=== PATIENT | female | born 1945 | race American Indian/Alaskan Native ===

== ENCOUNTER 2018-09-03 15:00 | Inpatient (IN) | payer MEDICARE, BC ==
[2018-09-03 20:55] VITALS: BMI 18.2
--- NOTE | 2018-09-03 22:55 | CP.PCM.HP ---
History of Present Illness - History of Present Illness History of Present Illness: PMD: Not on service Chief Complaint: Right side weakness The patient was seen and examined in the Rehab Unit HPI: The hx was obtained from the patient and after review of the radiological and medical records. This is a 73 years old female with hx of ESRD on HD T ; HTN, CAD and Gout. [facility] and rehabilitation. She was admitted to the [facility] on 08/26/18 with confusion and right side weakness and diagnosed with Cerebral Hemorrhage. At present she refers no headache, dizziness, nausea, vomits, SOB nor chest pain. Still with dome coordination abnormalities of the left upper extremity. PMH: Gout; DJD; Hypothyroidism; CAD;ESRD on HD ; HTN; Cataract PSHJ: Right knee replacement; Cataract extraction; Coronary stent placement; SH: Never Smoked; No Alcohol use; No illegal drug use; FH: States: No known Family Hx Allergies: NKDA Medication: Reviewed Present on Admission - Present on Admission Any Indicators Present on Admission: No History of DVT/PE: No History of Uncontrolled Diabetes: No Urinary Catheter: No Decubitus Ulcer Present: No Review of Systems - Constitutional Constitutional: absent: Anorexia, Chills, Fever, Headache - EENT Eyes: Requires Corrective Lenses. absent: Blurred Vision, Diplopia Ears: absent: Decreased Hearing, Ear Discharge, Tinnitus Nose/Mouth/Throat: absent: Epistaxis, Nasal Congestion, Nasal Discharge, Sinus Pain, Sinus Pressure - Cardiovascular Cardiovascular: absent: Chest Pain, Dyspnea, Edema - Respiratory Respiratory: absent: Cough, Dyspnea, Wheezing - Gastrointestinal Gastrointestinal: absent: Abdominal Pain, Constipation, Diarrhea, Nausea, Vomiting - Genitourinary Genitourinary: absent: Dysuria, Flank Pain - Musculoskeletal Musculoskeletal: Arthralgias. absent: Muscle Weakness - Integumentary Integumentary: absent: Pruritus, Rash, Skin Ulcer, Sores, Striae, Swelling - Neurological Neurological: absent: Confusion, Focal Weakness, Weakness - Psychiatric Psychiatric: absent: Anxiety, Depression, Panic Attacks - Endocrine Endocrine: absent: Palpitations, Polydipsia, Polyphagia, Polyuria - Hematologic/Lymphatic Hematologic: absent: Easy Bleeding, Easy Bruising Past Patient History - Past Medical History & Family History Past Medical History?: Yes - Past Social History Smoking Status: Never Smoked Chewing Tobacco Use: No Cigar Use: No Alcohol: None Drugs: Denies - CARDIAC Hx Cardiac Disorders: Yes Hx Heart Attack: Yes (2017-CARDIAC STENT PLACED X1) Hx Hypertension: Yes - PULMONARY Hx Respiratory Disorders: No - NEUROLOGICAL Hx Neurological Disorder: No - HEENT Hx HEENT Problems: Yes Hx Cataracts: Yes - RENAL Hx Chronic Kidney Disease: Yes Date of Last Dialysis Treatment: 07/12/18 Hx Renal Failure: Yes - ENDOCRINE/METABOLIC Hx Endocrine Disorders: Yes Hx Hypothyroidism: Yes - HEMATOLOGICAL/ONCOLOGICAL Hx Blood Disorders: No - INTEGUMENTARY Hx Dermatological Problems: No - MUSCULOSKELETAL/RHEUMATOLOGICAL Hx Musculoskeletal Disorders: Yes Hx Degenerative Joint Disease: Yes Hx Gout: Yes Other/Comment: HX: RIGHT KNEE REPLACEMENT - GASTROINTESTINAL Hx Gastrointestinal Disorders: No - GENITOURINARY/GYNECOLOGICAL Hx Genitourinary Disorders: No - PSYCHIATRIC Hx Psychophysiologic Disorder: No - SURGICAL HISTORY Hx Surgeries: Yes Hx Arteriovenous Shunt: Yes (LEFT ARM) Hx Cataract Extraction: Yes Hx Coronary Stent: Yes (X1(2017)) Hx Orthopedic Surgery: Yes (RIGHT KNEE REPLACEMENT) - ANESTHESIA Hx Anesthesia: Yes Hx Anesthesia Reactions: No Hx Malignant Hyperthermia: No Meds Allergies/Adverse Reactions: Allergies Allergy/AdvReac Type Severity Reaction Status Date / Time No Known Allergies Allergy Verified 09/03/18 21:45 Physical Exam - Constitutional Appears: No Acute Distress - Head Exam Head Exam: ATRAUMATIC, NORMAL INSPECTION, NORMOCEPHALIC - Eye Exam Eye Exam: EOMI Pupil Exam: NORMAL ACCOMODATION, PERRL - ENT Exam ENT Exam: Mucous Membranes Moist, Normal Exam, Normal External Ear Exam - Neck Exam Neck exam: Positive for: Full Rom, Normal Inspection. Negative for: Lymphadenopathy, Tenderness - Respiratory Exam Respiratory Exam: Clear to Auscultation Bilateral. absent: Rales, Rhonchi, Wheezes - Cardiovascular Exam Cardiovascular Exam: REGULAR RHYTHM, RRR, +S1, +S2 - GI/Abdominal Exam GI & Abdominal Exam: Normal Bowel Sounds, Soft. absent: Mass, Organomegaly, Tenderness - Rectal Exam Rectal Exam: Deferred - Extremities Exam Extremities exam: Positive for: normal inspection. Negative for: calf tenderness, pedal edema - Back Exam Back exam: NORMAL INSPECTION. absent: CVA tenderness (L), CVA tenderness (R) - Neurological Exam Neurological exam: Alert, CN II-XII Intact, Oriented x3, Reflexes Normal - Psychiatric Exam Psychiatric exam: Normal Affect, Normal Mood - Skin Skin Exam: Dry, Normal Color, Warm Results - Imaging and Cardiology CT scan - head Status: Report reviewed by me Additional comment: Left parietal [id number] lobar hemorrhage with regional mass effect. No midline shift. There is a small amount of subarachnoid hemorrhage over the left frontal and left frontoparietal convexity. CTA head and Neck Additional comment: Within normal limits. No large aneurysms noted Assessment & Plan - Assessment and Plan (Free Text) Plan: 73 years old female with hx of ESRD on HD T Th S; HTN, CAD and Gout. [facility] and [facility]. She was admitted to the [facility] on 08/26/18 with confusion and right side weakness and diagnosed with Cerebral Hemorrhage. #. Acute Left Parietal intraparech - Consult Dr Cisneros the [employer] - Blood pressure management - Keppra - Lipitor - OT/PT - CBC/BMP #. ESRD on Hemodialysis [facility]. Patient was dialysed on 09/03/18, - Consult Nephrology Dr Bermudez #. Hypothyroidism #. UTI - Amoxicillin #. Gout - Allopurinol -HTN -Amlodipine #. Stress ulcer Prophylaxis with Pantoprazole #. DVT Prophylaxis with SCD while in bed #.Code Status: Full - Date & Time Date: 09/03/18 Time: 22:55
[2018-09-04] MEDS: Levothyroxine 200 MCG TAB PO SCH (06:34)
[2018-09-04 07:14] LABS: BASO % 0.2 % (0.0-2.0); EOS % 0.1 % (0.0-4.0); HEMOGLOBIN 9.7 g/dL (12.0-16.0); LYMPH # 0.9 K/uL (1.0-4.3); LYMPH % 12.9 % (20.0-40.0); MEAN CELL VOLUME 83.4 fl (81.0-99.0); MEAN CORPUSCULAR HEMOGLOBIN 26.5 pg (27.0-31.0); MEAN CORPUSCULAR HGB CONC 31.8 g/dL (33.0-37.0); MEAN PLATELET VOLUME 8.1 fl (7.2-11.7); MONO # 0.6 K/uL (0.0-0.8); MONO % 8.2 % (0.0-10.0); NEUT # 5.5 K/uL (1.8-7.0); NEUT % 78.6 % (50.0-75.0); NRBC % 0.1 % (0.0-0.0); RBC 3.65 Mil/uL (3.80-5.20); RED CELL DISTRIBUTION WIDTH 17.8 % (11.5-14.5)
[2018-09-04 07:18] LABS: CALCIUM 9.3 mg/dL (8.4-10.2)
[2018-09-04] MEDS: Calcium Acetate 667 MG Capsule PO SCH ×3 (08:44→17:23)
[2018-09-04] MEDS: Pantoprazole 40 mg EC Tab PO SCH (08:44)
--- NOTE | 2018-09-04 10:40 | CP.PCM.CON ---
History of Present Illness - History of Present Illness History of Present Illness: This patient who is 73 years of age female who was admitted for rehabilitation from [facility] I was called to see her for further follow-up on the end-stage renal disease with dialysis. Patient has been on dialysis for about 7-month and her dialysis schedule Saturday. And the history from the record showed the following Acute Left intraparenchymal Hemorrhage with subarachnoid extension The hx was obtained from the patient and after review of the radiological and medical records. This is a 73 years old female with hx of ESRD on HD ; HTN, CAD and Gout. She is transferred from the [facility] for continued treatment and rehabilitation. She was admitted to the [facility] on 08/26/18 with confusion and right side weakness and diagnosed with Cerebral Hemorrhage. At present she refers no headache, dizziness, nausea, vomits, SOB nor chest pain. Still with dome coordination abnormalities of the left upper extremity PMH: Gout; Hypothyroidism; CAD;ESRD on HD ; HTN; Cataract PSHJ: Right knee replacement; Cataract extraction; Coronary stent placement; SH: Never Smoked; No Alcohol use; No illegal drug use; Review of Systems - Constitutional Constitutional: absent: Anorexia, Chills, Headache - EENT Eyes: absent: Pain Ears: absent: Ear Pain - Cardiovascular Cardiovascular: absent: Acrocyanosis, Chest Pain, Chest Pain at Rest, Dyspnea, Palpitations - Respiratory Respiratory: absent: Dyspnea, Hemoptysis - Gastrointestinal Gastrointestinal: absent: Diarrhea, Dysphagia, Nausea - Genitourinary Genitourinary: Nocturia - Musculoskeletal Musculoskeletal: Abnormal Gait, Muscle Weakness - Neurological Neurological: As Per HPI. absent: Convulsions - Endocrine Endocrine: Fatigue - Hematologic/Lymphatic Hematologic: absent: Easy Bleeding Past Patient History - Past Medical History & Family History Past Medical History?: Yes - Past Social History Smoking Status: Never Smoked Chewing Tobacco Use: No Cigar Use: No Alcohol: None Drugs: Denies - CARDIAC Hx Cardiac Disorders: Yes Hx Heart Attack: Yes (2017-CARDIAC STENT PLACED X1) Hx Hypertension: Yes - PULMONARY Hx Respiratory Disorders: No - NEUROLOGICAL Hx Neurological Disorder: No - HEENT Hx HEENT Problems: Yes Hx Cataracts: Yes - RENAL Hx Chronic Kidney Disease: Yes Date of Last Dialysis Treatment: 07/12/18 Hx Renal Failure: Yes - ENDOCRINE/METABOLIC Hx Endocrine Disorders: Yes Hx Hypothyroidism: Yes - HEMATOLOGICAL/ONCOLOGICAL Hx Blood Disorders: No - INTEGUMENTARY Hx Dermatological Problems: No - MUSCULOSKELETAL/RHEUMATOLOGICAL Hx Musculoskeletal Disorders: Yes Hx Degenerative Joint Disease: Yes Hx Gout: Yes Other/Comment: HX: RIGHT KNEE REPLACEMENT - GASTROINTESTINAL Hx Gastrointestinal Disorders: No - GENITOURINARY/GYNECOLOGICAL Hx Genitourinary Disorders: No - PSYCHIATRIC Hx Psychophysiologic Disorder: No - SURGICAL HISTORY Hx Surgeries: Yes Hx Arteriovenous Shunt: Yes (LEFT ARM) Hx Cataract Extraction: Yes Hx Coronary Stent: Yes (X1(2017)) Hx Orthopedic Surgery: Yes (RIGHT KNEE REPLACEMENT) - ANESTHESIA Hx Anesthesia: Yes Hx Anesthesia Reactions: No Hx Malignant Hyperthermia: No Meds Allergies/Adverse Reactions: Allergies Allergy/AdvReac Type Severity Reaction Status Date / Time No Known Allergies Allergy Verified 09/03/18 21:45 - Medications Medications: Current Medications Acetaminophen (Tylenol 325mg Tab) 650 mg PO Q6 PRN PRN Reason: Fever >100.4 F Amlodipine Besylate (Norvasc) 10 mg PO DAILY [facility] Last Admin: 09/04/18 08:43 Dose: 10 mg Amoxicillin (Amoxil 500 Mg Cap) 500 mg PO DAILY [facility]; Protocol Last Admin: 09/04/18 08:42 Dose: 500 mg Atorvastatin Calcium (Lipitor) 40 mg PO HS [facility] Last Admin: 09/03/18 23:23 Dose: 40 mg Calcium Acetate (Phoslo) 667 mg PO TID [facility] Last Admin: 09/04/18 08:44 Dose: 667 mg Colchicine (Colocrys) 0.6 mg PO QOTHERDAY [facility] Epoetin Tuan (Procrit) 2,000 unit IV MWF [facility] Levetiracetam (Keppra) 500 mg PO BID [facility] Last Admin: 09/04/18 08:42 Dose: 500 mg Levothyroxine Sodium (Synthroid) 200 mcg PO DAILY@0630 [facility] Last Admin: 09/04/18 06:34 Dose: 200 mcg Metoprolol Tartrate (Lopressor) 12.5 mg PO Q12 [facility] Last Admin: 09/04/18 08:42 Dose: 12.5 mg Pantoprazole Sodium (Protonix Ec Tab) 40 mg PO DAILY [facility] Last Admin: 09/04/18 08:44 Dose: 40 mg Physical Exam - Constitutional Appears: No Acute Distress - Eye Exam Eye Exam: Conjunctival injection - ENT Exam ENT Exam: Mucous Membranes Moist - Neck Exam Neck exam: Negative for: Lymphadenopathy - Respiratory Exam Respiratory Exam: NORMAL BREATHING PATTERN - Cardiovascular Exam Cardiovascular Exam: absent: Gallop, JVD, Rubs - GI/Abdominal Exam GI & Abdominal Exam: Normal Bowel Sounds. absent: Guarding - Extremities Exam Extremities exam: Negative for: calf tenderness - Back Exam Back exam: absent: CVA tenderness (L), CVA tenderness (R) - Neurological Exam Neurological exam: Alert - Psychiatric Exam Psychiatric exam: Normal Affect Results - Vital Signs Recent Vital Signs: Last Vital Signs Temp 97.7 F 09/04/18 08:28 Pulse 92 H 09/04/18 08:43 Resp 20 09/04/18 08:28 BP 137/70 09/04/18 08:43 Pulse Ox 98 09/04/18 08:28 - Labs Result Diagrams: 09/04/18 05:55 09/04/18 05:55 Labs: Laboratory Results - last 24 hr 09/04/18 09/04/18 05:55 05:55 WBC 7.0 RBC 3.65 L Hgb 9.7 L Hct 30.4 L MCV 83.4 MCH 26.5 L MCHC 31.8 L RDW 17.8 H Plt Count 311 MPV 8.1 Neut % (Auto) 78.6 H Lymph % (Auto) 12.9 L Wetzel % (Auto) 8.2 Eos % (Auto) 0.1 Baso % (Auto) 0.2 Neut # (Auto) 5.5 Lymph # (Auto) 0.9 L Wetzel # (Auto) 0.6 Eos # (Auto) 0.0 Baso # (Auto) 0.0 Sodium 137 Potassium 3.8 Chloride 93 L Carbon Dioxide 29 Anion Gap 19 BUN 47 H Creatinine 4.8 H Est GFR ( Amer) 11 Est GFR (Non-Af Amer) 9 Random Glucose 59 L Calcium 9.3 Magnesium 1.8 Assessment & Plan (1) End stage renal disease Assessment and Plan: End-stage renal disease patient on dialysis Saturday. Intracranial bleeding with CVA and weakness of the left side hypertension Hyperphosphatemia Hyperparathyroidism Anemia Recommendation Continue dialysis Saturday order was given consent was taken Continue phosphorus binder EPO for the anemia As per primary team Rehabilitation Status: Acute
--- NOTE | 2018-09-04 19:18 | CP.PCM.CON ---
History of Present Illness - History of Present Illness History of Present Illness: 73 year old female admitted to acute rehab with diagnosis of Acute left parenchymal hemorrhage and subarachnoid extension with other past medical history of ESRD on dialysis,HTN, CAD, hypothyroidism, now for inpatient acute rehab . Review of Systems - Musculoskeletal Musculoskeletal: Muscle Weakness - Neurological Neurological: Weakness Past Patient History - Past Medical History & Family History Past Medical History?: Yes - Past Social History Smoking Status: Never Smoked Chewing Tobacco Use: No Cigar Use: No Alcohol: None Drugs: Denies - CARDIAC Hx Cardiac Disorders: Yes Hx Heart Attack: Yes (2017-CARDIAC STENT PLACED X1) Hx Hypertension: Yes - PULMONARY Hx Respiratory Disorders: No - NEUROLOGICAL Hx Neurological Disorder: No - HEENT Hx HEENT Problems: Yes Hx Cataracts: Yes - RENAL Hx Chronic Kidney Disease: Yes Date of Last Dialysis Treatment: 07/12/18 Hx Renal Failure: Yes - ENDOCRINE/METABOLIC Hx Endocrine Disorders: Yes Hx Hypothyroidism: Yes - HEMATOLOGICAL/ONCOLOGICAL Hx Blood Disorders: No - INTEGUMENTARY Hx Dermatological Problems: No - MUSCULOSKELETAL/RHEUMATOLOGICAL Hx Musculoskeletal Disorders: Yes Hx Degenerative Joint Disease: Yes Hx Gout: Yes Other/Comment: HX: RIGHT KNEE REPLACEMENT - GASTROINTESTINAL Hx Gastrointestinal Disorders: No - GENITOURINARY/GYNECOLOGICAL Hx Genitourinary Disorders: No - PSYCHIATRIC Hx Psychophysiologic Disorder: No - SURGICAL HISTORY Hx Surgeries: Yes Hx Arteriovenous Shunt: Yes (LEFT ARM) Hx Cataract Extraction: Yes Hx Coronary Stent: Yes (X1(2017)) Hx Orthopedic Surgery: Yes (RIGHT KNEE REPLACEMENT) - ANESTHESIA Hx Anesthesia: Yes Hx Anesthesia Reactions: No Hx Malignant Hyperthermia: No Meds Allergies/Adverse Reactions: Allergies Allergy/AdvReac Type Severity Reaction Status Date / Time No Known Allergies Allergy Verified 09/03/18 21:45 - Medications Medications: Current Medications Acetaminophen (Tylenol 325mg Tab) 650 mg PO Q6 PRN PRN Reason: Fever >100.4 F Amlodipine Besylate (Norvasc) 10 mg PO DAILY [facility] Last Admin: 09/04/18 08:43 Dose: 10 mg Amoxicillin (Amoxil 500 Mg Cap) 500 mg PO DAILY [facility]; Protocol Last Admin: 09/04/18 08:42 Dose: 500 mg Atorvastatin Calcium (Lipitor) 40 mg PO HS [facility] Last Admin: 09/03/18 23:23 Dose: 40 mg Calcium Acetate (Phoslo) 667 mg PO TID [facility] Last Admin: 09/04/18 17:23 Dose: 667 mg Colchicine (Colocrys) 0.6 mg PO QOTHERDAY [facility] Epoetin Tuan (Procrit) 2,000 unit IV MWF [facility] Levetiracetam (Keppra) 500 mg PO BID [facility] Last Admin: 09/04/18 17:23 Dose: 500 mg Levothyroxine Sodium (Synthroid) 200 mcg PO DAILY@0630 [facility] Last Admin: 09/04/18 06:34 Dose: 200 mcg Metoprolol Tartrate (Lopressor) 12.5 mg PO Q12 [facility] Last Admin: 09/04/18 08:42 Dose: 12.5 mg Pantoprazole Sodium (Protonix Ec Tab) 40 mg PO DAILY [facility] Last Admin: 09/04/18 08:44 Dose: 40 mg Physical Exam - Constitutional Appears: Well - Head Exam Head Exam: ATRAUMATIC, NORMAL INSPECTION, NORMOCEPHALIC - Eye Exam Eye Exam: EOMI, Normal appearance Pupil Exam: NORMAL ACCOMODATION, PERRL - ENT Exam ENT Exam: Mucous Membranes Moist, Normal Exam - Neck Exam Neck exam: Positive for: Normal Inspection - Respiratory Exam Respiratory Exam: Clear to Auscultation Bilateral, NORMAL BREATHING PATTERN - Cardiovascular Exam Cardiovascular Exam: REGULAR RHYTHM - GI/Abdominal Exam GI & Abdominal Exam: Normal Bowel Sounds - Rectal Exam Rectal Exam: NORMAL INSPECTION - Exam External exam: NORMAL EXTERNAL EXAM - Extremities Exam Extremities exam: Positive for: normal inspection Additional comments: arm and leg weakness, with problems with balance and coordination - Neurological Exam Neurological exam: Alert - Psychiatric Exam Psychiatric exam: Normal Affect - Skin Skin Exam: Normal Color Results - Vital Signs Recent Vital Signs: Last Vital Signs Temp 97.9 F 09/04/18 17:00 Pulse 86 09/04/18 17:00 Resp 18 09/04/18 17:00 BP 116/67 09/04/18 17:00 Pulse Ox 97 09/04/18 17:00 - Labs Result Diagrams: 09/04/18 05:55 09/04/18 05:55 Labs: Laboratory Results - last 24 hr 09/04/18 09/04/18 09/04/18 05:55 05:55 11:30 WBC 7.0 RBC 3.65 L Hgb 9.7 L Hct 30.4 L MCV 83.4 MCH 26.5 L MCHC 31.8 L RDW 17.8 H Plt Count 311 MPV 8.1 Neut % (Auto) 78.6 H Lymph % (Auto) 12.9 L Cotton % (Auto) 8.2 Eos % (Auto) 0.1 Baso % (Auto) 0.2 Neut # (Auto) 5.5 Lymph # (Auto) 0.9 L Cotton # (Auto) 0.6 Eos # (Auto) 0.0 Baso # (Auto) 0.0 Sodium 137 Potassium 3.8 Chloride 93 L Carbon Dioxide 29 Anion Gap 19 BUN 47 H Creatinine 4.8 H Est GFR ( Amer) 11 Est GFR (Non-Af Amer) 9 Random Glucose 59 L Calcium 9.3 Phosphorus 2.3 L Magnesium 1.8 Assessment & Plan - Assessment and Plan (Free Text) Plan: Acute parenchymal hemorrhage with subarachnoid extension, with ESRD on dialysis, CAD, Hypothyroidism, admitted for acute inpatient rehab for physical, occupational, Speech and recreational for range of motion, strengthening, transfers and gait training. To write overall plan of care for the patient
--- NOTE | 2018-09-04 19:26 | PCM.OPOC ---
Physiatry Overall Plan of Care - Overall Plan of Care Estimated Length of Stay in Weeks: 3 Rehab Impairment: Mobility, Gait, Cognition, Speech, Balance, Coordination Etiologic Diagnosis: Cerebrovascular Accident Rehab/Medical Prognosis: Fair - Anticipated Interventions Physical Therapy:: Yes Occupational Therapy:: Yes Speech Therapy:: Yes Recreational Therapy:: Yes - Therapy Goals Bed Mobility: Independent Ambulation: Supervision Functional Positional Changes:: Independent - Functional Outcomes Functional Outcomes: fair - Discharge Plan Identification of Barriers to Discharge: Cognition Discharge Destination: Home
[2018-09-05] MEDS: Levothyroxine 200 MCG TAB PO SCH (05:52)
[2018-09-05] MEDS ORDERED: EPOETIN ALFA 2000 UNIT/ML IV SCH ×2 (09:00→16:00)
[2018-09-05] MEDS: Pantoprazole 40 mg EC Tab PO SCH (09:09)
--- NOTE | 2018-09-05 11:31 | CP.PCM.PN ---
Subjective - Date & Time of Evaluation Date of Evaluation: 09/05/18 Time of Evaluation: 11:00 - Subjective Subjective: Patient was seen and examined bedside . All chart and clinical data reviewed. Hemodynamicaly stable, afebrile. No acute issues overnight participating with PT and doing well For HD today Objective - Vital Signs/Intake and Output Vital Signs (last 24 hours): Temp Pulse Resp BP Pulse Ox 97.7 F 86 20 129/69 99 09/05/18 10:38 09/05/18 10:38 09/05/18 10:38 09/05/18 10:38 09/05/18 10:38 - Medications Medications: Current Medications Acetaminophen (Tylenol 325mg Tab) 650 mg PO Q6 PRN PRN Reason: Fever >100.4 F Amlodipine Besylate (Norvasc) 10 mg PO DAILY [facility] Last Admin: 09/05/18 09:10 Dose: Not Given Amoxicillin (Amoxil 500 Mg Cap) 500 mg PO DAILY [facility]; Protocol Last Admin: 09/05/18 09:08 Dose: 500 mg Atorvastatin Calcium (Lipitor) 40 mg PO HS [facility] Last Admin: 09/04/18 21:27 Dose: 40 mg Calcium Acetate (Phoslo) 667 mg PO TIDWM [facility] Last Admin: 09/05/18 09:22 Dose: 667 mg Colchicine (Colocrys) 0.6 mg PO QOTHERDAY [facility] Last Admin: 09/05/18 09:09 Dose: 0.6 mg Epoetin Tuan (Procrit) 2,000 unit IV MWF [facility] Levetiracetam (Keppra) 500 mg PO BID [facility] Last Admin: 09/05/18 09:09 Dose: 500 mg Levothyroxine Sodium (Synthroid) 200 mcg PO DAILY@0630 [facility] Last Admin: 09/05/18 05:52 Dose: 200 mcg Metoprolol Tartrate (Lopressor) 12.5 mg PO Q12 [facility] Last Admin: 09/05/18 09:11 Dose: Not Given Pantoprazole Sodium (Protonix Ec Tab) 40 mg PO DAILY [facility] Last Admin: 09/05/18 09:09 Dose: 40 mg - Labs Labs: 09/04/18 05:55 09/04/18 05:55 - Constitutional Appears: Non-toxic, No Acute Distress - Head Exam Head Exam: ATRAUMATIC, NORMAL INSPECTION, NORMOCEPHALIC - Eye Exam Eye Exam: EOMI, Normal appearance, PERRL Pupil Exam: NORMAL ACCOMODATION - ENT Exam ENT Exam: Mucous Membranes Moist, Normal Exam - Neck Exam Neck Exam: Full ROM, Normal Inspection - Respiratory Exam Respiratory Exam: Clear to Ausculation Bilateral, NORMAL BREATHING PATTERN. absent: Rales, Rhonchi, Wheezes Additional comments: left upper chest HD catheter - Cardiovascular Exam Cardiovascular Exam: REGULAR RHYTHM, RRR, +S1, +S2. absent: JVD - GI/Abdominal Exam GI & Abdominal Exam: Soft, Normal Bowel Sounds. absent: Distended, Guarding, Rebound - Rectal Exam Rectal Exam: Deferred - Extremities Exam Extremities Exam: Full ROM, Normal Capillary Refill, Normal Inspection Additional comments: Right antecubital shunt with no thrill - Neurological Exam Neurological Exam: Alert, Awake, CN II-XII Intact, Oriented x3 - Psychiatric Exam Psychiatric exam: Normal Affect, Normal Mood - Skin Skin Exam: Dry, Intact, Normal Color, Warm Assessment and Plan - Assessment and Plan (Free Text) Assessment: 73 years old female with hx of ESRD on HD T S, HTN, CAD and Gout, transferred from the [facility] for continued treatment and rehabilitation. She was admitted to the [facility] on 08/26/18 with confusion and right side weakness and diagnosed with Cerebral Hemorrhage. At present in rehab doing well and participating with PT 1. Acute Left Parietal intraparenchimal hemorrhage participating with Pt and improving On Keppra for seizure prevention Continue Statin and BP control 2. ESRD on Hemodialysis For HD today Consult Nephrology Dr Bermudez on Phosplo 3. Hypothyroidism on synthroid 200 mcg QD 4. UTI on Amoxicillin 5.HTN controlled on Amlodipine 6. Anemia of chronic disease monitor for now 7. Secondary Hyperparathyroidism on Phoslo 8.DVT Prophylaxis SCD
--- NOTE | 2018-09-05 11:49 | CP.PCM.PN ---
Subjective - Date & Time of Evaluation Date of Evaluation: 09/05/18 Time of Evaluation: 11:48 - Subjective Subjective: Patient awake and conscious sitting up in the chair feeling good. Vital signs noted to be stable. Appetite is good. Objective - Vital Signs/Intake and Output Vital Signs (last 24 hours): Temp Pulse Resp BP Pulse Ox 97.7 F 86 20 129/69 99 09/05/18 10:38 09/05/18 10:38 09/05/18 10:38 09/05/18 10:38 09/05/18 10:38 - Medications Medications: Current Medications Acetaminophen (Tylenol 325mg Tab) 650 mg PO Q6 PRN PRN Reason: Fever >100.4 F Amlodipine Besylate (Norvasc) 10 mg PO DAILY [facility] Last Admin: 09/05/18 09:10 Dose: Not Given Amoxicillin (Amoxil 500 Mg Cap) 500 mg PO DAILY [facility]; Protocol Last Admin: 09/05/18 09:08 Dose: 500 mg Atorvastatin Calcium (Lipitor) 40 mg PO HS [facility] Last Admin: 09/04/18 21:27 Dose: 40 mg Calcium Acetate (Phoslo) 667 mg PO TIDWM [facility] Last Admin: 09/05/18 09:22 Dose: 667 mg Colchicine (Colocrys) 0.6 mg PO QOTHERDAY [facility] Last Admin: 09/05/18 09:09 Dose: 0.6 mg Epoetin Tuan (Procrit) 2,000 unit IV MWF [facility] Levetiracetam (Keppra) 500 mg PO BID [facility] Last Admin: 09/05/18 09:09 Dose: 500 mg Levothyroxine Sodium (Synthroid) 200 mcg PO DAILY@0630 [facility] Last Admin: 09/05/18 05:52 Dose: 200 mcg Metoprolol Tartrate (Lopressor) 12.5 mg PO Q12 [facility] Last Admin: 09/05/18 09:11 Dose: Not Given Pantoprazole Sodium (Protonix Ec Tab) 40 mg PO DAILY [facility] Last Admin: 09/05/18 09:09 Dose: 40 mg - Labs Labs: 09/04/18 05:55 09/04/18 05:55 - Constitutional Appears: No Acute Distress - Eye Exam Eye Exam: Conjunctival injection - ENT Exam ENT Exam: Mucous Membranes Moist - Respiratory Exam Respiratory Exam: NORMAL BREATHING PATTERN. absent: Rales - Cardiovascular Exam Cardiovascular Exam: absent: Gallop, JVD, Rubs - GI/Abdominal Exam GI & Abdominal Exam: Soft, Normal Bowel Sounds - Extremities Exam Extremities Exam: absent: Calf Tenderness - Back Exam Back Exam: absent: CVA tenderness (L), CVA tenderness (R) - Neurological Exam Neurological Exam: Alert - Psychiatric Exam Psychiatric exam: Normal Affect - Skin Skin Exam: absent: Cyanosis Assessment and Plan (1) End stage renal disease Assessment & Plan: End-stage renal disease patient on dialysis Saturday. Intracranial bleeding with CVA and weakness of the left side hypertension Hyperphosphatemia Hyperparathyroidism Anemia Recommendation Continue dialysis Saturday order was given consent was taken Continue phosphorus binder EPO for the anemia Renal diet 80 g protein 2 g sodium 2 g potassium Patient receiving physiotherapy. Status: Acute
--- NOTE | 2018-09-05 12:51 | CP.PCM.PN ---
Subjective - Date & Time of Evaluation Date of Evaluation: 09/05/18 Time of Evaluation: 11:30 - Subjective Subjective: no acute complaints of pain or discomfort Objective - Vital Signs/Intake and Output Vital Signs (last 24 hours): Temp Pulse Resp BP Pulse Ox 97.2 F L 86 20 114/67 99 09/05/18 12:32 09/05/18 12:32 09/05/18 12:32 09/05/18 12:32 09/05/18 12:32 - Medications Medications: Current Medications Acetaminophen (Tylenol 325mg Tab) 650 mg PO Q6 PRN PRN Reason: Fever >100.4 F Amlodipine Besylate (Norvasc) 10 mg PO DAILY [facility] Last Admin: 09/05/18 09:10 Dose: Not Given Amoxicillin (Amoxil 500 Mg Cap) 500 mg PO DAILY [facility]; Protocol Last Admin: 09/05/18 09:08 Dose: 500 mg Atorvastatin Calcium (Lipitor) 40 mg PO HS [facility] Last Admin: 09/04/18 21:27 Dose: 40 mg Calcium Acetate (Phoslo) 667 mg PO TIDWM [facility] Last Admin: 09/05/18 12:26 Dose: 667 mg Colchicine (Colocrys) 0.6 mg PO QOTHERDAY [facility] Last Admin: 09/05/18 09:09 Dose: 0.6 mg Epoetin Tuan (Procrit) 2,000 unit IV MWF [facility] Levetiracetam (Keppra) 500 mg PO BID [facility] Last Admin: 09/05/18 09:09 Dose: 500 mg Levothyroxine Sodium (Synthroid) 200 mcg PO DAILY@0630 [facility] Last Admin: 09/05/18 05:52 Dose: 200 mcg Metoprolol Tartrate (Lopressor) 12.5 mg PO Q12 [facility] Last Admin: 09/05/18 09:11 Dose: Not Given Pantoprazole Sodium (Protonix Ec Tab) 40 mg PO DAILY [facility] Last Admin: 09/05/18 09:09 Dose: 40 mg - Labs Labs: 09/04/18 05:55 09/04/18 05:55 - Constitutional Appears: Well - Head Exam Head Exam: ATRAUMATIC, NORMAL INSPECTION, NORMOCEPHALIC - Eye Exam Eye Exam: EOMI, Normal appearance, PERRL Pupil Exam: NORMAL ACCOMODATION - ENT Exam ENT Exam: Mucous Membranes Moist, Normal Exam - Neck Exam Neck Exam: Full ROM, Normal Inspection - Respiratory Exam Respiratory Exam: Clear to Ausculation Bilateral, NORMAL BREATHING PATTERN - Cardiovascular Exam Cardiovascular Exam: REGULAR RHYTHM - GI/Abdominal Exam GI & Abdominal Exam: Soft, Normal Bowel Sounds - Rectal Exam Rectal Exam: NORMAL INSPECTION - Exam External exam: NORMAL EXTERNAL EXAM - Extremities Exam Extremities Exam: Full ROM, Normal Capillary Refill, Normal Inspection - Back Exam Back Exam: NORMAL INSPECTION - Neurological Exam Neurological Exam: Alert, Awake Neuro motor strength exam: Left Upper Extremity: 3, Right Upper Extremity: 3, Left Lower Extremity: 3, Right Lower Extremity: 3 - Psychiatric Exam Psychiatric exam: Normal Affect, Normal Mood - Skin Skin Exam: Dry, Intact Assessment and Plan (1) End stage renal disease Status: Acute (2) Hemorrhagic cerebrovascular accident (CVA) Assessment & Plan: plan for physical, occupational, rec therapy, for range of motion, strenghtening, transfers and gait training. monitor skin and vitals. Status: Acute
[2018-09-05] MEDS: Epoetin Alfa 20000 UNIT/ML Inj IV SCH (18:24)
[2018-09-05 20:39] LABS: HEPATITIS B SURFACE AG Negative (NEGATIVE)
[2018-09-05 20:44] LABS: HEPATITIS B CORE AB NEGATIVE (NEGATIVE)
[2018-09-06] MEDS: Levothyroxine 200 MCG TAB PO SCH (06:19)
[2018-09-06] MEDS: Calcium Acetate 667 MG Capsule PO SCH (07:58)
[2018-09-06] MEDS: Pantoprazole 40 mg EC Tab PO SCH (10:06)
--- NOTE | 2018-09-06 13:56 | CP.PCM.PN ---
Subjective - Date & Time of Evaluation Date of Evaluation: 09/06/18 Time of Evaluation: 13:55 - Subjective Subjective: Nephrology Consultation Note Assessment: Stable CVA Hypertensive Chronic Kidney Disease (I12.0) End stage renal disease (N18.6) dependence on hemodialysis (Z99.2) (MWF) via pc Anemia (D64.9), Hyperphosphatemia (E83.39), Secondary Hyperparathyroidism (E21.1), HTN (I12.0) Plan: Will plan for HD MWF schedule as ordered. No acute need for dialysis today. Continue with Nephrovite 1 tab/day. PRBC as needed for anemia. on MASOOD with dialysis as last Hb 9.7 Continue with phos binders BP control with meds as ordered. Patient not on RAAS willow, consider to add if BP high Glycemic control, Dialysis consistent diet Further work up/management as per primary team Dose meds/antibiotics (if needed) for ESRD status. Avoid fleets enema/magnesium based laxatives. Thanks for allowing me to participate in care of your patient. Will follow p atient with you. Please call if any Qs Dr Jose Eddy Office: [phone] Subjective: Noted events overnight. Patients feels okay. Denies chest pain, palpitation, shortness of breath, leg swelling. All other negative Physical Examination: General Appearance: Comfortable, in no acute respiratory distress, co-operative . Vitals reviewed and noted as below Head; Atraumatic, normocephalic ENT: no ulcers no thrush. Tongue is midline. Oropharynx: no rash or ulcers. EYES: Pupils are equal, round and reactive to light accommodation. Eye muscles and extraocular movement intact. Sclera is anicteric. Neck; supple no lymphadenopathy, no thyromegaly or bruit Lungs: Normal respiratory rate/effort. Breath sounds bilateral equal and clear Heart: Normal rate. s1s2 normal. No rub or gallop. Extremities: no edema. No varicose veins Neurological: Patient is alert, awake and oriented to person, place and time. LUE weakness Skin: Warm and dry. Normal turgor. No rash. Palpitation: Normal elasticity for age Abdomen: Abdomen is soft. Bowel sounds +. There is no abdominal tenderness, no guarding/rigidity or organomegaly Psych: normal insight and normal affect/mood MSK: no joint tenderness or swelling. Digits and nails normal, no deformity : kidney or bladder not palpable Access: pc and maturing avf Labs/imaging reviewed. Past medical history, past surgical history, family history, social history, allergy reviewed and noted as below Family Hx: no hx of CKD. Non contributory Objective - Vital Signs/Intake and Output Vital Signs (last 24 hours): Temp Pulse Resp BP Pulse Ox 98.4 F 82 18 124/68 99 09/06/18 07:31 09/06/18 10:10 09/06/18 07:31 09/06/18 10:10 09/06/18 07:31 - Medications Medications: Current Medications Acetaminophen (Tylenol 325mg Tab) 650 mg PO Q6 PRN PRN Reason: Fever >100.4 F Amlodipine Besylate (Norvasc) 10 mg PO DAILY [facility] Last Admin: 09/06/18 09:00 Dose: 10 mg Amoxicillin (Amoxil 500 Mg Cap) 500 mg PO DAILY [facility]; Protocol Last Admin: 09/06/18 10:02 Dose: 500 mg Atorvastatin Calcium (Lipitor) 40 mg PO HS [facility] Last Admin: 09/05/18 22:03 Dose: 40 mg Calcium Acetate (Phoslo) 667 mg PO TIDWM [facility] Last Admin: 09/06/18 08:00 Dose: 667 mg Colchicine (Colocrys) 0.6 mg PO QOTHERDAY [facility] Last Admin: 09/05/18 09:09 Dose: 0.6 mg Epoetin Tuan (Procrit) 2,000 unit IV MWF [facility] Last Admin: 09/05/18 18:24 Dose: 2,000 unit Levetiracetam (Keppra) 500 mg PO BID [facility] Last Admin: 09/06/18 09:00 Dose: 500 mg Levothyroxine Sodium (Synthroid) 200 mcg PO DAILY@0630 [facility] Last Admin: 09/06/18 06:19 Dose: 200 mcg Metoprolol Tartrate (Lopressor) 12.5 mg PO Q12 [facility] Last Admin: 09/06/18 10:10 Dose: 12.5 mg Pantoprazole Sodium (Protonix Ec Tab) 40 mg PO DAILY [facility] Last Admin: 09/06/18 10:06 Dose: 40 mg Vitamin B Complex/Vit C/Folic Acid (Nephro-Kimani) 1 tab PO DAILY [facility] - Labs Labs: 09/04/18 05:55 09/04/18 05:55
[2018-09-07] MEDS: Levothyroxine 200 MCG TAB PO SCH (06:11)
[2018-09-07] MEDS: Pantoprazole 40 mg EC Tab PO SCH (08:44)
[2018-09-07] MEDS: Multivitamin Vitamin B Complex (Nephro-Vite) Tab PO SCH (08:44)
--- NOTE | 2018-09-07 12:27 | CP.PCM.PN ---
Subjective - Date & Time of Evaluation Date of Evaluation: 09/07/18 Time of Evaluation: 12:27 - Subjective Subjective: Nephrology Consultation Note Assessment: Stable CVA Hypertensive Chronic Kidney Disease (I12.0) End stage renal disease (N18.6) dependence on hemodialysis (Z99.2) (MWF) via pc Anemia (D64.9), Hyperphosphatemia (E83.39), Secondary Hyperparathyroidism (E21.1), HTN (I12.0) Plan: Will plan for HD MWF schedule as ordered. No acute need for dialysis today. Continue with Nephrovite 1 tab/day. PRBC as needed for anemia. on MASOOD with dialysis as last Hb 9.7 Continue with phos binders BP control with meds as ordered. Patient not on RAAS willow, consider to add if BP high Glycemic control, Dialysis consistent diet Further work up/management as per primary team Dose meds/antibiotics (if needed) for ESRD status. Avoid fleets enema/magnesium based laxatives. Thanks for allowing me to participate in care of your patient. Will follow p atient with you. Please call if any Qs Dr Jose Eddy Office: [phone] Subjective: Noted events overnight. Patients feels okay. Denies chest pain, palpitation, shortness of breath, leg swelling. All other negative Physical Examination: General Appearance: Comfortable, in no acute respiratory distress, co-operative . Vitals reviewed and noted as below Head; Atraumatic, normocephalic ENT: no ulcers no thrush. Tongue is midline. Oropharynx: no rash or ulcers. EYES: Pupils are equal, round and reactive to light accommodation. Eye muscles and extraocular movement intact. Sclera is anicteric. Neck; supple no lymphadenopathy, no thyromegaly or bruit Lungs: Normal respiratory rate/effort. Breath sounds bilateral equal and clear Heart: Normal rate. s1s2 normal. No rub or gallop. Extremities: no edema. No varicose veins Neurological: Patient is alert, awake and oriented to person, place and time. LUE weakness Skin: Warm and dry. Normal turgor. No rash. Palpitation: Normal elasticity for age Abdomen: Abdomen is soft. Bowel sounds +. There is no abdominal tenderness, no guarding/rigidity or organomegaly Psych: normal insight and normal affect/mood MSK: no joint tenderness or swelling. Digits and nails normal, no deformity : kidney or bladder not palpable Access: pc and maturing avf Labs/imaging reviewed. Past medical history, past surgical history, family history, social history, allergy reviewed and noted as below Family Hx: no hx of CKD. Non contributory Objective - Vital Signs/Intake and Output Vital Signs (last 24 hours): Temp Pulse Resp BP Pulse Ox 96.8 F L 88 20 123/77 99 09/07/18 09:27 09/07/18 09:27 09/07/18 09:27 09/07/18 09:27 09/07/18 09:27 - Medications Medications: Current Medications Acetaminophen (Tylenol 325mg Tab) 650 mg PO Q6 PRN PRN Reason: Fever >100.4 F Amlodipine Besylate (Norvasc) 10 mg PO DAILY [facility] Last Admin: 09/07/18 08:44 Dose: 10 mg Amoxicillin (Amoxil 500 Mg Cap) 500 mg PO DAILY [facility]; Protocol Last Admin: 09/07/18 08:44 Dose: 500 mg Atorvastatin Calcium (Lipitor) 40 mg PO HS [facility] Last Admin: 09/06/18 21:57 Dose: 40 mg Calcium Acetate (Phoslo) 667 mg PO TIDWM [facility] Last Admin: 09/07/18 12:15 Dose: 667 mg Colchicine (Colocrys) 0.6 mg PO QOTHERDAY [facility] Last Admin: 09/07/18 08:43 Dose: 0.6 mg Epoetin Tuan (Procrit) 2,000 unit IV MWF [facility] Last Admin: 09/05/18 18:24 Dose: 2,000 unit Levetiracetam (Keppra) 500 mg PO BID [facility] Last Admin: 09/07/18 08:43 Dose: 500 mg Levothyroxine Sodium (Synthroid) 200 mcg PO DAILY@0630 [facility] Last Admin: 09/07/18 06:11 Dose: 200 mcg Metoprolol Tartrate (Lopressor) 12.5 mg PO Q12 [facility] Last Admin: 09/07/18 08:44 Dose: 12.5 mg Pantoprazole Sodium (Protonix Ec Tab) 40 mg PO DAILY [facility] Last Admin: 09/07/18 08:44 Dose: 40 mg Vitamin B Complex/Vit C/Folic Acid (Nephro-Kimani) 1 tab PO DAILY [facility] Last Admin: 09/07/18 08:44 Dose: 1 tab - Labs Labs: 09/04/18 05:55 09/04/18 05:55
[2018-09-08] MEDS: Levothyroxine 200 MCG TAB PO SCH (06:03)
[2018-09-08] MEDS: Multivitamin Vitamin B Complex (Nephro-Vite) Tab PO SCH (08:40)
[2018-09-08] MEDS: Pantoprazole 40 mg EC Tab PO SCH (08:40)
--- NOTE | 2018-09-08 10:28 | CP.PCM.PN ---
Subjective - Date & Time of Evaluation Date of Evaluation: 09/08/18 Time of Evaluation: 10:27 - Subjective Subjective: Patient awake and conscious Patient is feeling better Vital signs stable Objective - Vital Signs/Intake and Output Vital Signs (last 24 hours): Temp Pulse Resp BP Pulse Ox 98.1 F 99 H 19 133/70 100 09/08/18 07:55 09/08/18 08:40 09/08/18 07:55 09/08/18 08:40 09/08/18 07:55 Intake and Output: 09/08/18 09/08/18 06:59 18:59 Intake Total 200 Balance 200 - Medications Medications: Current Medications Acetaminophen (Tylenol 325mg Tab) 650 mg PO Q6 PRN PRN Reason: Fever >100.4 F Amlodipine Besylate (Norvasc) 10 mg PO DAILY [facility] Last Admin: 09/08/18 08:40 Dose: 10 mg Amoxicillin (Amoxil 500 Mg Cap) 500 mg PO DAILY [facility]; Protocol Last Admin: 09/08/18 08:39 Dose: 500 mg Atorvastatin Calcium (Lipitor) 40 mg PO HS [facility] Last Admin: 09/07/18 21:15 Dose: 40 mg Calcium Acetate (Phoslo) 667 mg PO TIDWM [facility] Last Admin: 09/08/18 08:40 Dose: 667 mg Colchicine (Colocrys) 0.6 mg PO QOTHERDAY [facility] Last Admin: 09/07/18 08:43 Dose: 0.6 mg Epoetin Tuan (Procrit) 2,000 unit IV MWF [facility] Last Admin: 09/05/18 18:24 Dose: 2,000 unit Levetiracetam (Keppra) 500 mg PO BID [facility] Last Admin: 09/08/18 08:40 Dose: 500 mg Levothyroxine Sodium (Synthroid) 200 mcg PO DAILY@0630 [facility] Last Admin: 09/08/18 06:03 Dose: 200 mcg Metoprolol Tartrate (Lopressor) 12.5 mg PO Q12 [facility] Last Admin: 09/08/18 08:39 Dose: 12.5 mg Pantoprazole Sodium (Protonix Ec Tab) 40 mg PO DAILY [facility] Last Admin: 09/08/18 08:40 Dose: 40 mg Vitamin B Complex/Vit C/Folic Acid (Nephro-Kimani) 1 tab PO DAILY [facility] Last Admin: 09/08/18 08:40 Dose: 1 tab - Labs Labs: 09/04/18 05:55 09/04/18 05:55 - Constitutional Appears: No Acute Distress - Eye Exam Eye Exam: Conjunctival injection - ENT Exam ENT Exam: Mucous Membranes Moist - Respiratory Exam Respiratory Exam: NORMAL BREATHING PATTERN - Cardiovascular Exam Cardiovascular Exam: absent: Gallop, JVD, Rubs - GI/Abdominal Exam GI & Abdominal Exam: Soft, Normal Bowel Sounds - Extremities Exam Extremities Exam: absent: Calf Tenderness - Back Exam Back Exam: absent: CVA tenderness (L), CVA tenderness (R) - Neurological Exam Neurological Exam: Alert - Psychiatric Exam Psychiatric exam: Normal Affect - Skin Skin Exam: absent: Cyanosis Assessment and Plan (1) End stage renal disease Assessment & Plan: End-stage renal disease patient on dialysis Saturday. Intracranial bleeding with CVA and weakness of the left side hypertension Hyperphosphatemia Hyperparathyroidism Anemia Recommendation Continue dialysis Saturday order was given Continue phosphorus binder EPO for the anemia Patient receiving physiotherapy. Status: Acute
--- NOTE | 2018-09-08 14:50 | CP.PCM.PN ---
Subjective - Date & Time of Evaluation Date of Evaluation: 09/08/18 Time of Evaluation: 14:50 - Subjective Subjective: doing well with PT no complaints Objective - Vital Signs/Intake and Output Vital Signs (last 24 hours): Temp Pulse Resp BP Pulse Ox 98.1 F 97 H 19 110/61 100 09/08/18 07:55 09/08/18 09:00 09/08/18 07:55 09/08/18 09:00 09/08/18 09:00 Vitals Reviewed GEN: WDWN, alert, cooperative HEENT: NCAT, PERRL, EOMI HEART: RRR, +S1S2, NO MRG LUNG: CTAB, NO WRR ABD: soft, NT, ND, No HSM, No masses EXT: normal pedal pulses NEURO: awake, alert SKIN: warm, dry PSYCH: normal mood, normal affect Intake and Output: 09/08/18 09/08/18 06:59 18:59 Intake Total 200 Balance 200 - Medications Medications: Current Medications Acetaminophen (Tylenol 325mg Tab) 650 mg PO Q6 PRN PRN Reason: Fever >100.4 F Amlodipine Besylate (Norvasc) 10 mg PO DAILY [facility] Last Admin: 09/08/18 08:40 Dose: 10 mg Amoxicillin (Amoxil 500 Mg Cap) 500 mg PO DAILY [facility]; Protocol Last Admin: 09/08/18 08:39 Dose: 500 mg Atorvastatin Calcium (Lipitor) 40 mg PO HS [facility] Last Admin: 09/07/18 21:15 Dose: 40 mg Calcium Acetate (Phoslo) 667 mg PO TIDWM [facility] Last Admin: 09/08/18 12:32 Dose: 667 mg Colchicine (Colocrys) 0.6 mg PO QOTHERDAY [facility] Last Admin: 09/07/18 08:43 Dose: 0.6 mg Epoetin Tuan (Procrit) 2,000 unit IV MWF [facility] Last Admin: 09/05/18 18:24 Dose: 2,000 unit Levetiracetam (Keppra) 500 mg PO BID [facility] Last Admin: 09/08/18 08:40 Dose: 500 mg Levothyroxine Sodium (Synthroid) 200 mcg PO DAILY@0630 [facility] Last Admin: 09/08/18 06:03 Dose: 200 mcg Metoprolol Tartrate (Lopressor) 12.5 mg PO Q12 [facility] Last Admin: 09/08/18 08:39 Dose: 12.5 mg Pantoprazole Sodium (Protonix Ec Tab) 40 mg PO DAILY [facility] Last Admin: 09/08/18 08:40 Dose: 40 mg Vitamin B Complex/Vit C/Folic Acid (Nephro-Kimani) 1 tab PO DAILY [facility] Last Admin: 09/08/18 08:40 Dose: 1 tab - Labs Labs: 09/04/18 05:55 09/04/18 05:55 Assessment and Plan - Assessment and Plan (Free Text) Plan: 73 years old female with hx of ESRD on HD T S, HTN, CAD and Gout, transferred from the [facility] for continued treatment and rehabilitation. She was admitted to the [facility] [place] on 08/26/18 with confusion and right side weakness and diagnosed with Cerebral Hemorrhage. At present in rehab doing well and participating with PT 1. Acute Left Parietal intraparenchimal hemorrhage participating with Pt and improving On Keppra for seizure prevention Continue Statin and BP control 2. ESRD on Hemodialysis For HD today Consult Nephrology Dr Bermudez on Phosplo 3. Hypothyroidism on synthroid 200 mcg QD 4. UTI on Amoxicillin 5.HTN controlled on Amlodipine 6. Anemia of chronic disease monitor for now 7. Secondary Hyperparathyroidism on Phoslo 8.DVT Prophylaxis SCD
[2018-09-08] MEDS: Epoetin Alfa 20000 UNIT/ML Inj IV SCH (17:11)
--- NOTE | 2018-09-08 18:34 | CP.PCM.PN ---
Subjective - Date & Time of Evaluation Date of Evaluation: 09/07/18 Time of Evaluation: 12:00 - Subjective Subjective: no acute neck or back pain Objective - Vital Signs/Intake and Output Vital Signs (last 24 hours): Temp Pulse Resp BP Pulse Ox 98.1 F 97 H 19 110/61 100 09/08/18 07:55 09/08/18 09:00 09/08/18 07:55 09/08/18 09:00 09/08/18 09:00 Intake and Output: 09/08/18 09/08/18 06:59 18:59 Intake Total 200 476 Balance 200 476 - Medications Medications: Current Medications Acetaminophen (Tylenol 325mg Tab) 650 mg PO Q6 PRN PRN Reason: Fever >100.4 F Amlodipine Besylate (Norvasc) 10 mg PO DAILY [facility] Last Admin: 09/08/18 08:40 Dose: 10 mg Amoxicillin (Amoxil 500 Mg Cap) 500 mg PO DAILY [facility]; Protocol Last Admin: 09/08/18 08:39 Dose: 500 mg Atorvastatin Calcium (Lipitor) 40 mg PO HS [facility] Last Admin: 09/07/18 21:15 Dose: 40 mg Calcium Acetate (Phoslo) 667 mg PO TIDWM [facility] Last Admin: 09/08/18 16:32 Dose: 667 mg Colchicine (Colocrys) 0.6 mg PO QOTHERDAY [facility] Last Admin: 09/07/18 08:43 Dose: 0.6 mg Epoetin Tuan (Procrit) 2,000 unit IV MWF [facility] Last Admin: 09/08/18 17:11 Dose: 2,000 unit Levetiracetam (Keppra) 500 mg PO BID [facility] Last Admin: 09/08/18 16:31 Dose: 500 mg Levothyroxine Sodium (Synthroid) 200 mcg PO DAILY@0630 [facility] Last Admin: 09/08/18 06:03 Dose: 200 mcg Metoprolol Tartrate (Lopressor) 12.5 mg PO Q12 [facility] Last Admin: 09/08/18 08:39 Dose: 12.5 mg Pantoprazole Sodium (Protonix Ec Tab) 40 mg PO DAILY [facility] Last Admin: 09/08/18 08:40 Dose: 40 mg Vitamin B Complex/Vit C/Folic Acid (Nephro-Kimani) 1 tab PO DAILY [facility] Last Admin: 09/08/18 08:40 Dose: 1 tab - Labs Labs: 09/04/18 05:55 09/04/18 05:55 - Constitutional Appears: Well - Head Exam Head Exam: ATRAUMATIC, NORMAL INSPECTION, NORMOCEPHALIC - Eye Exam Eye Exam: EOMI, Normal appearance, PERRL Pupil Exam: NORMAL ACCOMODATION - ENT Exam ENT Exam: Mucous Membranes Moist, Normal Exam - Neck Exam Neck Exam: Full ROM, Normal Inspection - Respiratory Exam Respiratory Exam: Clear to Ausculation Bilateral, NORMAL BREATHING PATTERN - Cardiovascular Exam Cardiovascular Exam: REGULAR RHYTHM - GI/Abdominal Exam GI & Abdominal Exam: Soft, Normal Bowel Sounds - Rectal Exam Rectal Exam: NORMAL INSPECTION - Exam External exam: NORMAL EXTERNAL EXAM - Extremities Exam Extremities Exam: Full ROM, Normal Capillary Refill, Normal Inspection - Back Exam Back Exam: NORMAL INSPECTION - Neurological Exam Neurological Exam: Alert, Awake Neuro motor strength exam: Left Upper Extremity: 3, Right Upper Extremity: 3, Left Lower Extremity: 3, Right Lower Extremity: 3 - Psychiatric Exam Psychiatric exam: Normal Affect, Normal Mood - Skin Skin Exam: Dry, Intact Assessment and Plan (1) End stage renal disease Status: Acute (2) Hemorrhagic cerebrovascular accident (CVA) Assessment & Plan: plan for physical, occupational, rec therapy ,monitor skin and labs Status: Acute
--- NOTE | 2018-09-08 18:36 | CP.PCM.PN ---
Subjective - Date & Time of Evaluation Date of Evaluation: 09/08/18 Time of Evaluation: 13:00 - Subjective Subjective: no acute complaints of any pain, lying in bed getting dialysis Objective - Vital Signs/Intake and Output Vital Signs (last 24 hours): Temp Pulse Resp BP Pulse Ox 98.1 F 97 H 19 110/61 100 09/08/18 07:55 09/08/18 09:00 09/08/18 07:55 09/08/18 09:00 09/08/18 09:00 Intake and Output: 09/08/18 09/08/18 06:59 18:59 Intake Total 200 476 Balance 200 476 - Medications Medications: Current Medications Acetaminophen (Tylenol 325mg Tab) 650 mg PO Q6 PRN PRN Reason: Fever >100.4 F Amlodipine Besylate (Norvasc) 10 mg PO DAILY [facility] Last Admin: 09/08/18 08:40 Dose: 10 mg Amoxicillin (Amoxil 500 Mg Cap) 500 mg PO DAILY [facility]; Protocol Last Admin: 09/08/18 08:39 Dose: 500 mg Atorvastatin Calcium (Lipitor) 40 mg PO HS [facility] Last Admin: 09/07/18 21:15 Dose: 40 mg Calcium Acetate (Phoslo) 667 mg PO TIDWM [facility] Last Admin: 09/08/18 16:32 Dose: 667 mg Colchicine (Colocrys) 0.6 mg PO QOTHERDAY [facility] Last Admin: 09/07/18 08:43 Dose: 0.6 mg Epoetin Tuan (Procrit) 2,000 unit IV MWF [facility] Last Admin: 09/08/18 17:11 Dose: 2,000 unit Levetiracetam (Keppra) 500 mg PO BID [facility] Last Admin: 09/08/18 16:31 Dose: 500 mg Levothyroxine Sodium (Synthroid) 200 mcg PO DAILY@0630 [facility] Last Admin: 09/08/18 06:03 Dose: 200 mcg Metoprolol Tartrate (Lopressor) 12.5 mg PO Q12 [facility] Last Admin: 09/08/18 08:39 Dose: 12.5 mg Pantoprazole Sodium (Protonix Ec Tab) 40 mg PO DAILY [facility] Last Admin: 09/08/18 08:40 Dose: 40 mg Vitamin B Complex/Vit C/Folic Acid (Nephro-Kimani) 1 tab PO DAILY [facility] Last Admin: 09/08/18 08:40 Dose: 1 tab - Labs Labs: 09/04/18 05:55 09/04/18 05:55 - Constitutional Appears: Well - Head Exam Head Exam: ATRAUMATIC, NORMAL INSPECTION, NORMOCEPHALIC - Eye Exam Eye Exam: EOMI, Normal appearance, PERRL Pupil Exam: NORMAL ACCOMODATION - ENT Exam ENT Exam: Mucous Membranes Moist, Normal Exam - Neck Exam Neck Exam: Full ROM, Normal Inspection - Respiratory Exam Respiratory Exam: Clear to Ausculation Bilateral, NORMAL BREATHING PATTERN - Cardiovascular Exam Cardiovascular Exam: REGULAR RHYTHM - GI/Abdominal Exam GI & Abdominal Exam: Soft, Normal Bowel Sounds - Rectal Exam Rectal Exam: NORMAL INSPECTION - Exam External exam: NORMAL EXTERNAL EXAM - Extremities Exam Extremities Exam: Full ROM, Normal Capillary Refill, Normal Inspection - Back Exam Back Exam: NORMAL INSPECTION - Neurological Exam Neurological Exam: Alert, Awake Neuro motor strength exam: Left Upper Extremity: 3, Right Upper Extremity: 3, Left Lower Extremity: 3, Right Lower Extremity: 3 - Psychiatric Exam Psychiatric exam: Normal Affect, Normal Mood - Skin Skin Exam: Dry, Intact Assessment and Plan (1) End stage renal disease Status: Acute (2) Hemorrhagic cerebrovascular accident (CVA) Assessment & Plan: plan for physical, occupational rec therapy, for discharge planning, equipment evaluation, team conference for saturday Status: Acute
[2018-09-09] MEDS: Levothyroxine 200 MCG TAB PO SCH (06:25)
[2018-09-09] MEDS: Multivitamin Vitamin B Complex (Nephro-Vite) Tab PO SCH (08:44)
[2018-09-09] MEDS: Pantoprazole 40 mg EC Tab PO SCH (08:45)
--- NOTE | 2018-09-09 14:11 | CP.PCM.PN ---
Subjective - Date & Time of Evaluation Date of Evaluation: 09/09/18 Time of Evaluation: 07:50 - Subjective Subjective: Patient stable feeling good no nausea no vomiting. Vital signs stable. Reviewed labs and medication as noted with low phosphorus and PTH noted see the plan Objective - Vital Signs/Intake and Output Vital Signs (last 24 hours): Temp Pulse Resp BP Pulse Ox 97.5 F L 92 H 21 107/63 100 09/09/18 08:29 09/09/18 09:00 09/09/18 08:29 09/09/18 09:00 09/09/18 08:29 Intake and Output: 09/09/18 09/09/18 06:59 18:59 Intake Total 300 Balance 300 - Medications Medications: Current Medications Acetaminophen (Tylenol 325mg Tab) 650 mg PO Q6 PRN PRN Reason: Fever >100.4 F Amlodipine Besylate (Norvasc) 10 mg PO DAILY [facility] Last Admin: 09/09/18 08:48 Dose: Not Given Atorvastatin Calcium (Lipitor) 40 mg PO HS [facility] Last Admin: 09/08/18 21:33 Dose: 40 mg Calcitriol (Rocaltrol) 0.25 mcg PO DAILY [facility] Colchicine (Colocrys) 0.6 mg PO QOTHERDAY [facility] Last Admin: 09/09/18 08:45 Dose: 0.6 mg Epoetin Tuan (Procrit) 2,000 unit IV MWF [facility] Last Admin: 09/08/18 17:11 Dose: 2,000 unit Levetiracetam (Keppra) 500 mg PO BID [facility] Last Admin: 09/09/18 08:44 Dose: 500 mg Levothyroxine Sodium (Synthroid) 200 mcg PO DAILY@0630 [facility] Last Admin: 09/09/18 06:25 Dose: 200 mcg Metoprolol Tartrate (Lopressor) 12.5 mg PO Q12 [facility] Last Admin: 09/09/18 09:00 Dose: 12.5 mg Pantoprazole Sodium (Protonix Ec Tab) 40 mg PO DAILY [facility] Last Admin: 09/09/18 08:45 Dose: 40 mg Vitamin B Complex/Vit C/Folic Acid (Nephro-Kimani) 1 tab PO DAILY [facility] Last Admin: 09/09/18 08:44 Dose: 1 tab - Labs Labs: 09/04/18 05:55 09/04/18 05:55 - Constitutional Appears: No Acute Distress - Eye Exam Eye Exam: Conjunctival injection - ENT Exam ENT Exam: Mucous Membranes Moist - Neck Exam Neck Exam: absent: Lymphadenopathy - Respiratory Exam Respiratory Exam: NORMAL BREATHING PATTERN - Cardiovascular Exam Cardiovascular Exam: absent: Gallop, JVD, Rubs - GI/Abdominal Exam GI & Abdominal Exam: Soft, Normal Bowel Sounds - Back Exam Back Exam: absent: CVA tenderness (L), CVA tenderness (R) - Neurological Exam Neurological Exam: Alert - Psychiatric Exam Psychiatric exam: Normal Affect - Skin Skin Exam: absent: Cyanosis Assessment and Plan (1) End stage renal disease Assessment & Plan: End-stage renal disease patient on dialysis Saturday. Intracranial bleeding with CVA and weakness of the left side hypertension Hyperphosphatemia secondary Hyperparathyroidism Anemia Recommendation Continue dialysis MWF D/C phosphorus binder calcium acetate because serum phosphorus coming down 2.3. Start calcitriol for secondary hyperparathyroidism. Patient receiving physiotherapy Status: Acute
[2018-09-10] MEDS: Levothyroxine 200 MCG TAB PO SCH (06:22)
[2018-09-10] MEDS: Multivitamin Vitamin B Complex (Nephro-Vite) Tab PO SCH (09:41)
[2018-09-10] MEDS: Pantoprazole 40 mg EC Tab PO SCH (09:42)
--- NOTE | 2018-09-10 12:06 | PCM.PSYTMC ---
Acute Rehab Team Conference - - Vital Signs: Vital Signs (Last 8 Hours): Vital Signs 09/10/18 09/10/18 09/10/18 08:13 09:40 09:41 Temperature 97.7 F Pulse Rate 63 63 63 Respiratory 19 Rate Blood Pressure 112/71 112/71 112/71 O2 Sat by Pulse 99 Oximetry 09/10/18 09:47 Temperature Pulse Rate 87 Respiratory Rate Blood Pressure O2 Sat by Pulse Oximetry Pain: 0 Physical Therapy - Bed Mobility Bed Mobility: Verbal Cues, Contact Guard - Transfers Wheelchair to Mat: Verbal Cues, Contact Guard Sit to Stand: Verbal Cues, Contact Guard - Ambulation Level of Assistance: Verbal Cues, Contact Guard, Minimal Assistance Distance (ft.): 130 Assistive Devices: Single point cane Orthoses: Inserting heel lift into L shoe as pt has noted leg length discrepancy - Stair Negotiation Stairs: Level of Assistance: Verbal Cues, Minimal Assistance Number of Stairs: 12 Handrails: Left Stairs: Assistive Devices: Left Handrail, Single point cane - Standing Balance Static Stand: Supervision - Pain Pain (assessed during therapy session): 0 Comment: Pt denies pain - Insight/Carryover Insight/Carryover: Fair - Patient/Family Education Comment: CVA recovery, safety, POC, d/c recommendations - Assessment/Plan Assessment: Pt is actively participating in PT tx sessions focusing on BLE strengthening exercises, balance and endurance activities, and functional mobility training. Pt requires CGA for bed mobility and transfers. Pt ambualtes with SPC and CGA/occasional min A. Pt with noted "limp" during gait; assessed leg length and RLE found to be 1.25 inches longer than L. Trialing L heel lift with noted improvements. Pt negotiates stairs with one handrail and SPC with CGA; however required mod cueing for sequencing and safety. Due to visual impairments and safety concerns, recommending 24 hour S upon d/c home. - Goals Timeframe: 2 weeks Goals: Sit < > supine mod I. All functional transfers mod I. Pt will ambualte 500 ft on even/uneven surfaces with supervision. Pt will negoitate flight of stairs with supervision - Provider Physical Therapist:: Princess Peters License Number:: [id number] Occupational Therapy - Arousal/Attention/Orientation Level of Consciousness: Awake, Alert, Forgetful Patient Orientation: Person, Place Assessment Comment: not oriented to correct date - ADL/IADL Self Feeding: Contact Guard Grooming: Set-up Help Bathing-Upper Ext: Supervision, Verbal Cues Bathing-Lower Ext: Supervision, Verbal Cues Dressing-Upper Ext: Supervision, Verbal Cues Dressing-Lower Ext: Supervision, Verbal Cues, Contact Guard Comment: patient requires Verbal cues for positioning/orientation of clothing 2' R visual field cut - Sitting Balance Static Sitting: Independent without upper extremity support Dynamic Sitting: Reaches across midline, Reaches out of base of support, Reaches within base of support - Transfers Wheelchair to Bed Transfers: Supervision, Verbal Cues Toilet Transfers: Supervision, Verbal Cues Comment: tub/shower transfers : CS/CGA + verbal cues for positioning/orientation 2' R visual field cut - Wheelchair Management Level of Assistance: Supervision, Verbal Cues Distance (ft.): 150 - Upper Extremity Status Right Upper Extremity Comment: AROM, shoulder, elbow, wrist WFLS. difficulty opposing 4th 5th digit to thumb. decreased coordination R hand as per finger to nose test. 9 hole peg test. 1:15.34. 1:48.43 Left Upper Extremity Comment: AROM WFLs. 9 hole peg test: 56.32. 59.17 - Pain Pain (assessed during therapy session): 0 - Insight/Carryover Insight/Carryover: Good - Patient/Family Education Comment: CVA recovery, DME/AE education, safety awareness, self-releasing seatbelt - Assessment/Plan Assessment: Patient is a 73 yo female who presents to 6N at [facility] s/p acute CVA . PRECAUTIONS:FALL/SAFETY , CARDIAC, R SIDED VISION DEFECITS. Patient presents with R UE FM/gross coordination defecits, and impaired strength RUE. Patient also presents with maximal visual perceptual deficits due to decreased distant acuity, R visual field cut and R visual inattention as well as impaired cognition/safety awareness, impaired dynamic standing balance,/unsteadiness on feet, impaired activity tolerance and impaired knowledge of adaptive/census enumerator y techniques for completion of self care. These aforementioend defecits impact patient's ability to complete ADLs,IADLS, transfers and mobility safely and effectively. Pt is progressing towards set goals so far during therapy. Pt is able to complete ub adls with supervision + intemittent verbal cues for orientation/positioning, lb adls with supervision and verbal cues for positioning/orientation ,pt able to complete transfers/mobility with cs/intermtient cga using spc. patient benefits from positioning items to patient's L side for increased visibility. Pt shows G carryover with compensatory visual tech such as headturning 2' decreased scanning. Skilled OT services are highly warranted 5-6x/week to maximize pt's functional I priro to d/c. Goal: D/C home with intermittent supervision as needed. - Goals Timeframe: 2 weeks Comment: Mod I transfers. Mod I ub adls. mod I lb dressing. supervision for bathing tasks. supervision for light homemaking tasks. supervision for LB bathing. improved FM/dexterity as evidenced by improved 9 hole peg test scores - Provider Occupational Therapist:: Nancy Mehta License Number: [id number] Speech Therapy - Consult Information Patient on Program: Yes Medical Diagnosis: CVA Treatment Diagnosis: mild-moderate cognitive-linguistic deficits - Assessment Problem Solving Impairment: Moderate Memory Impairment: Moderate - Plan Assessment: Brina Dennis presents with mild-moderate cognitive-linguistic deficits characterized by impaired short-term recall, orientation, more complex problem solving, reasoning, thought organization, word retrieval, and auditory comprehension of more complex yes/no questions. Pt reported that she has noticed a decline in her memory and thinking s/p CVA. She is highly motivated to improve and would benefit from continued skilled speech tx for improved cognition and functional independence. Plan: Continue Speech/Language Therapy Frequency: 3-5 times per week Duration: 1 week Goals/Timeframe: Please see progress note dated 09/08/18 for updated goals/POC Recommendations: Continue speech tx 3-5x/week for improved cognition and functio nal independence - Provider Therapist: Karin Cheema License Number: [id number] Recreational Therapy - Participation Participation: Participates in Individual and/or Group Sessions - Attendance Attendance: 3-5 times per week - Activities Leisure Activities: Cards and Games - Socialization Level of Socialization: Initiates/interacts freely with care givers and peer - Assessment Assessment/Plan: Pt is agreeable to participate in recreation therapy sessions and has participated in 1:1 sessions. Depending on leisure task, pt requires mod-max A throughout tasks 2' impaired command following, sequencing, decrease initiation, and visual deficits. Pt appears to present with R visual field cut and requires items to be located on L side; however, pt presents with difficulty seeing objects on the R side when it is located on the L of pt. Pt requires verbal cues for encouragement and motivation as pt will report she can't do the task before attempting to participate in task. Pt will continue to benefit from participating in recreation therapy sessions throughout stay on unit. Problems Currently Limiting Participation: R side visual cut, impaired carryover of comprehension strategies, decrease direction following and command following, decrease leisure awareness level Goals and Time Frame: Pt will complete two tabletop tasks utilizing visual compensation strategies, sequencing, and attention to task strategies successfully by date of discharge. Nutrition - Current Diet Current Diet/Supplement/Feedings: Heart healthy renal dialysis nepro 8 ounces 1 per day - Appetite Percent Meal Consumed: 75-100% - Assessment/Goals/Time Frame Assessments/Goals/Time Frame: Pt at moderate nutritional risk. goals: 1. Pt to consume 75-100% of meals. 2. K+ WNL. Follow-up due on 09/11/2018 - Provider Provider: Malissa Lopez Case Management - Psychosocial Assessment Support Systems: Jonathan Jeannie ([facility])- [phone] Psychological Interventions/Needs: Patient is alert and oriented with intermittent forgetfulness. Patient is able to verbalize needs Discharge Concerns: Patient with R visual field cut, however, demonstrates good carryover. Patient lives alone and will likely require intermittent supervision overall. Patient/Family Meeting: CM met with patient and rehab team. Intervention/Goal/Outcome: 1. Goal: Intermittent supervision. 2. Plan: Home with VNS- refer to [facility]. 3. caregiver training- patient lives alone, however, with supportive family in the area. 4. DME needs. 5. f/u appts. 6. continued emotional support. 7. arrangement to resume HD schedule at [facility]- endorsed to RN to confirm schedule with nephro. - Discharge Plan Discharge Plan: Home with services Home Services: [facility] - Provider Provider: Robert Laboy License Number: [id number] Rehabilitation Plan - Treatment Plan Treatment Plan: Physical Therapy, Occupational Therapy, Speech, Dietary, Patient/Family Education - Recommendation Recommendation: Physical Therapy, Occupational Therapy, Speech, Dietary, Patient/Family Education - Discharge Plan Discharge to: Home (dc 11)
--- NOTE | 2018-09-10 13:16 | CP.PCM.PN ---
Subjective - Date & Time of Evaluation Date of Evaluation: 09/10/18 Time of Evaluation: 13:15 - Subjective Subjective: Awake and conscious feeling good no chest pain no shortness of breath receiving physiotherapy Objective - Vital Signs/Intake and Output Vital Signs (last 24 hours): Temp Pulse Resp BP Pulse Ox 97.7 F 87 19 112/71 99 09/10/18 08:13 09/10/18 09:47 09/10/18 08:13 09/10/18 09:41 09/10/18 08:13 - Medications Medications: Current Medications Acetaminophen (Tylenol 325mg Tab) 650 mg PO Q6 PRN PRN Reason: Fever >100.4 F Amlodipine Besylate (Norvasc) 10 mg PO DAILY [facility] Last Admin: 09/10/18 09:40 Dose: Not Given Atorvastatin Calcium (Lipitor) 40 mg PO HS [facility] Last Admin: 09/09/18 21:28 Dose: 40 mg Calcitriol (Rocaltrol) 0.25 mcg PO DAILY [facility] Last Admin: 09/10/18 09:43 Dose: 0.25 mcg Colchicine (Colocrys) 0.6 mg PO QOTHERDAY [facility] Last Admin: 09/09/18 08:45 Dose: 0.6 mg Epoetin Tuan (Procrit) 2,000 unit IV MWF [facility] Last Admin: 09/08/18 17:11 Dose: 2,000 unit Levetiracetam (Keppra) 500 mg PO BID [facility] Last Admin: 09/10/18 09:40 Dose: 500 mg Levothyroxine Sodium (Synthroid) 200 mcg PO DAILY@0630 [facility] Last Admin: 09/10/18 06:22 Dose: 200 mcg Metoprolol Tartrate (Lopressor) 12.5 mg PO Q12 [facility] Last Admin: 09/10/18 09:41 Dose: 12.5 mg Pantoprazole Sodium (Protonix Ec Tab) 40 mg PO DAILY [facility] Last Admin: 09/10/18 09:42 Dose: 40 mg Vitamin B Complex/Vit C/Folic Acid (Nephro-Kimani) 1 tab PO DAILY [facility] Last Admin: 09/10/18 09:41 Dose: 1 tab - Labs Labs: 09/04/18 05:55 09/04/18 05:55 - Constitutional Appears: No Acute Distress - Eye Exam Eye Exam: Conjunctival injection - ENT Exam ENT Exam: Mucous Membranes Moist - Neck Exam Neck Exam: absent: Lymphadenopathy - Cardiovascular Exam Cardiovascular Exam: absent: Gallop, JVD, Rubs - GI/Abdominal Exam GI & Abdominal Exam: Soft - Extremities Exam Extremities Exam: absent: Calf Tenderness - Back Exam Back Exam: absent: CVA tenderness (L), CVA tenderness (R) - Neurological Exam Neurological Exam: Alert - Skin Skin Exam: absent: Cyanosis Assessment and Plan (1) End stage renal disease Assessment & Plan: Assessment & Plan: End-stage renal disease patient on dialysis Saturday. Intracranial bleeding with CVA and weakness of the left side hypertension Hyperphosphatemia secondary Hyperparathyroidism Anemia Recommendation Continue dialysis MWF, patient scheduled to have dialysis shortly and I discussed the dialysis order with the dialysis nurse D/C phosphorus binder calcium acetate because serum phosphorus coming down 2.3. Start calcitriol for secondary hyperparathyroidism. Patient receiving physiotherapy Status: Acute
--- NOTE | 2018-09-10 13:25 | CP.PCM.PN ---
Subjective - Date & Time of Evaluation Date of Evaluation: 09/10/18 Time of Evaluation: 11:00 - Subjective Subjective: Patient was seen and examined bedside . All chart and clinical data reviewed. Hemodynamicaly stable, afebrile.Feeling much better in strength and appetite. No acute issues overnight participating with PT and doing well For HD today Objective - Vital Signs/Intake and Output Vital Signs (last 24 hours): Temp Pulse Resp BP Pulse Ox 97.7 F 87 19 112/71 99 09/10/18 08:13 09/10/18 09:47 09/10/18 08:13 09/10/18 09:41 09/10/18 08:13 - Medications Medications: Current Medications Acetaminophen (Tylenol 325mg Tab) 650 mg PO Q6 PRN PRN Reason: Fever >100.4 F Amlodipine Besylate (Norvasc) 10 mg PO DAILY [facility] Last Admin: 09/10/18 09:40 Dose: Not Given Atorvastatin Calcium (Lipitor) 40 mg PO HS [facility] Last Admin: 09/09/18 21:28 Dose: 40 mg Calcitriol (Rocaltrol) 0.25 mcg PO DAILY [facility] Last Admin: 09/10/18 09:43 Dose: 0.25 mcg Colchicine (Colocrys) 0.6 mg PO QOTHERDAY [facility] Last Admin: 09/09/18 08:45 Dose: 0.6 mg Epoetin Tuan (Procrit) 2,000 unit IV MWF [facility] Last Admin: 09/08/18 17:11 Dose: 2,000 unit Levetiracetam (Keppra) 500 mg PO BID [facility] Last Admin: 09/10/18 09:40 Dose: 500 mg Levothyroxine Sodium (Synthroid) 200 mcg PO DAILY@0630 [facility] Last Admin: 09/10/18 06:22 Dose: 200 mcg Metoprolol Tartrate (Lopressor) 12.5 mg PO Q12 [facility] Last Admin: 09/10/18 09:41 Dose: 12.5 mg Pantoprazole Sodium (Protonix Ec Tab) 40 mg PO DAILY [facility] Last Admin: 09/10/18 09:42 Dose: 40 mg Vitamin B Complex/Vit C/Folic Acid (Nephro-Kimani) 1 tab PO DAILY [facility] Last Admin: 09/10/18 09:41 Dose: 1 tab - Labs Labs: 09/04/18 05:55 09/04/18 05:55 - Constitutional Appears: Non-toxic, No Acute Distress - Head Exam Head Exam: ATRAUMATIC, NORMAL INSPECTION, NORMOCEPHALIC - Eye Exam Eye Exam: PERRL Pupil Exam: NORMAL ACCOMODATION - ENT Exam ENT Exam: Mucous Membranes Moist, Normal Exam - Neck Exam Neck Exam: Full ROM, Normal Inspection - Respiratory Exam Respiratory Exam: Clear to Ausculation Bilateral, NORMAL BREATHING PATTERN. a bsent: Rales, Wheezes - Cardiovascular Exam Cardiovascular Exam: REGULAR RHYTHM, RRR, +S1, +S2. absent: JVD - GI/Abdominal Exam GI & Abdominal Exam: Soft, Normal Bowel Sounds. absent: Distended, Guarding, Rebound - Rectal Exam Rectal Exam: Deferred - Extremities Exam Extremities Exam: Full ROM, Normal Inspection - Back Exam Back Exam: NORMAL INSPECTION - Neurological Exam Neurological Exam: Alert, Awake, CN II-XII Intact, Oriented x3 - Psychiatric Exam Psychiatric exam: Normal Affect, Normal Mood - Skin Skin Exam: Dry, Intact, Normal Color, Warm Assessment and Plan - Assessment and Plan (Free Text) Assessment: 73 years old female with hx of ESRD on HD T , HTN, CAD and Gout, transferred from the [facility] for continued treatment and rehabilitation. She was admitted to the [facility] on 08/26/18 with confusion and right side weakness and diagnosed with Cerebral Hemorrhage. At present in rehab doing well and participating with PT 1. Acute Left Parietal intraparenchimal hemorrhage participating with PT and improving On Keppra for seizure prevention Continue Statin and BP control 2. ESRD on Hemodialysis For HD today nephrology on board following on Phoslo 3. Hypothyroidism on synthroid 200 mcg QD 4. UTI finished course of Amoxicillin 5.HTN controlled on Amlodipine and metoprolol 6. Anemia of chronic disease monitor for now 7. Secondary Hyperparathyroidism on Phoslo 8.DVT Prophylaxis SCD
--- NOTE | 2018-09-10 13:55 | CP.PCM.PN ---
Subjective - Date & Time of Evaluation Date of Evaluation: 09/10/18 Time of Evaluation: 13:00 - Subjective Subjective: no acute complaints at present, Objective - Vital Signs/Intake and Output Vital Signs (last 24 hours): Temp Pulse Resp BP Pulse Ox 97.7 F 87 19 112/71 99 09/10/18 08:13 09/10/18 09:47 09/10/18 08:13 09/10/18 09:41 09/10/18 08:13 - Medications Medications: Current Medications Acetaminophen (Tylenol 325mg Tab) 650 mg PO Q6 PRN PRN Reason: Fever >100.4 F Amlodipine Besylate (Norvasc) 10 mg PO DAILY [facility] Last Admin: 09/10/18 09:40 Dose: Not Given Atorvastatin Calcium (Lipitor) 40 mg PO HS [facility] Last Admin: 09/09/18 21:28 Dose: 40 mg Calcitriol (Rocaltrol) 0.25 mcg PO DAILY [facility] Last Admin: 09/10/18 09:43 Dose: 0.25 mcg Colchicine (Colocrys) 0.6 mg PO QOTHERDAY [facility] Last Admin: 09/09/18 08:45 Dose: 0.6 mg Epoetin Tuan (Procrit) 2,000 unit IV MWF [facility] Last Admin: 09/08/18 17:11 Dose: 2,000 unit Levetiracetam (Keppra) 500 mg PO BID [facility] Last Admin: 09/10/18 09:40 Dose: 500 mg Levothyroxine Sodium (Synthroid) 200 mcg PO DAILY@0630 [facility] Last Admin: 09/10/18 06:22 Dose: 200 mcg Metoprolol Tartrate (Lopressor) 12.5 mg PO Q12 [facility] Last Admin: 09/10/18 09:41 Dose: 12.5 mg Pantoprazole Sodium (Protonix Ec Tab) 40 mg PO DAILY [facility] Last Admin: 09/10/18 09:42 Dose: 40 mg Vitamin B Complex/Vit C/Folic Acid (Nephro-Kimani) 1 tab PO DAILY [facility] Last Admin: 09/10/18 09:41 Dose: 1 tab - Labs Labs: 09/04/18 05:55 09/04/18 05:55 - Constitutional Appears: Well - Head Exam Head Exam: ATRAUMATIC, NORMAL INSPECTION, NORMOCEPHALIC - Eye Exam Eye Exam: EOMI, Normal appearance, PERRL Pupil Exam: NORMAL ACCOMODATION, PERRL - ENT Exam ENT Exam: Mucous Membranes Moist, Normal Exam - Neck Exam Neck Exam: Full ROM, Normal Inspection - Respiratory Exam Respiratory Exam: Clear to Ausculation Bilateral, NORMAL BREATHING PATTERN - Cardiovascular Exam Cardiovascular Exam: REGULAR RHYTHM - GI/Abdominal Exam GI & Abdominal Exam: Soft, Normal Bowel Sounds - Rectal Exam Rectal Exam: NORMAL INSPECTION - Exam External exam: NORMAL EXTERNAL EXAM - Extremities Exam Extremities Exam: Full ROM, Normal Capillary Refill, Normal Inspection - Back Exam Back Exam: NORMAL INSPECTION - Neurological Exam Neurological Exam: Alert, Awake Neuro motor strength exam: Left Upper Extremity: 3, Right Upper Extremity: 3, Left Lower Extremity: 3, Right Lower Extremity: 3 - Psychiatric Exam Psychiatric exam: Normal Affect, Normal Mood - Skin Skin Exam: Dry, Intact Assessment and Plan (1) End stage renal disease Status: Acute (2) Hemorrhagic cerebrovascular accident (CVA) Assessment & Plan: plan for physical, occupational therapy for team conference, Dc for 11. to change dialysis TTs instead of mwf Status: Acute
[2018-09-10] MEDS: Epoetin Alfa 20000 UNIT/ML Inj IV SCH (17:30)
[2018-09-11] MEDS: Levothyroxine 200 MCG TAB PO SCH (06:27)
[2018-09-11] MEDS: Multivitamin Vitamin B Complex (Nephro-Vite) Tab PO SCH (08:07)
[2018-09-11] MEDS: Pantoprazole 40 mg EC Tab PO SCH (08:08)
--- NOTE | 2018-09-11 10:56 | CP.PCM.PN ---
Subjective - Date & Time of Evaluation Date of Evaluation: 09/11/18 Time of Evaluation: 10:20 - Subjective Subjective: Patient sitting up in the chair awake just came from speech therapy Vital signs stable Objective - Vital Signs/Intake and Output Vital Signs (last 24 hours): Temp Pulse Resp BP Pulse Ox 97.6 F 90 19 121/71 100 09/11/18 08:29 09/11/18 08:29 09/11/18 08:29 09/11/18 08:29 09/11/18 08:29 Intake and Output: 09/11/18 09/11/18 06:59 18:59 Intake Total 240 Balance 240 - Medications Medications: Current Medications Acetaminophen (Tylenol 325mg Tab) 650 mg PO Q6 PRN PRN Reason: Fever >100.4 F Amlodipine Besylate (Norvasc) 10 mg PO DAILY [facility] Last Admin: 09/11/18 08:08 Dose: 10 mg Atorvastatin Calcium (Lipitor) 40 mg PO HS [facility] Last Admin: 09/10/18 21:35 Dose: 40 mg Calcitriol (Rocaltrol) 0.25 mcg PO DAILY [facility] Last Admin: 09/11/18 08:08 Dose: 0.25 mcg Colchicine (Colocrys) 0.6 mg PO QOTHERDAY [facility] Last Admin: 09/11/18 08:06 Dose: 0.6 mg Epoetin Tuan (Procrit) 2,000 unit IV MWF [facility] Last Admin: 09/10/18 17:30 Dose: 2,000 unit Levetiracetam (Keppra) 500 mg PO BID [facility] Last Admin: 09/11/18 08:06 Dose: 500 mg Levothyroxine Sodium (Synthroid) 200 mcg PO DAILY@0630 [facility] Last Admin: 09/11/18 06:27 Dose: 200 mcg Metoprolol Tartrate (Lopressor) 12.5 mg PO Q12 [facility] Last Admin: 09/11/18 08:07 Dose: 12.5 mg Pantoprazole Sodium (Protonix Ec Tab) 40 mg PO DAILY [facility] Last Admin: 09/11/18 08:08 Dose: 40 mg Vitamin B Complex/Vit C/Folic Acid (Nephro-Kimani) 1 tab PO DAILY [facility] Last Admin: 09/11/18 08:07 Dose: 1 tab - Labs Labs: 09/04/18 05:55 09/04/18 05:55 - Constitutional Appears: No Acute Distress - Eye Exam Eye Exam: absent: Conjunctival injection - ENT Exam ENT Exam: Mucous Membranes Moist - Neck Exam Neck Exam: absent: Lymphadenopathy - Respiratory Exam Respiratory Exam: absent: Chest Wall Tenderness - GI/Abdominal Exam GI & Abdominal Exam: Soft, Normal Bowel Sounds - Extremities Exam Extremities Exam: absent: Calf Tenderness - Back Exam Back Exam: absent: CVA tenderness (L), CVA tenderness (R) - Neurological Exam Neurological Exam: Alert - Skin Skin Exam: absent: Cyanosis Assessment and Plan (1) End stage renal disease Assessment & Plan: End-stage renal disease patient on dialysis Saturday. Intracranial bleeding with CVA hypertension Hyperphosphatemia secondary Hyperparathyroidism Anemia Recommendation Patient is stable Tolerating hemodialysis scheduled for Saturday because her outpatient dialysis TTS and she is going to be discharged Saturday so she will be on her regular schedule Status: Acute
[2018-09-12] MEDS: Levothyroxine 200 MCG TAB PO SCH (06:10)
[2018-09-12] MEDS: Multivitamin Vitamin B Complex (Nephro-Vite) Tab PO SCH (08:35)
[2018-09-12] MEDS: Pantoprazole 40 mg EC Tab PO SCH (08:36)
--- NOTE | 2018-09-12 10:27 | CP.PCM.PN ---
Subjective - Date & Time of Evaluation Date of Evaluation: 09/12/18 Time of Evaluation: 10:27 - Subjective Subjective: Patient awake and conscious feeling good. Sitting up. Vital signs noted to be stable. Objective - Vital Signs/Intake and Output Vital Signs (last 24 hours): Temp Pulse Resp BP Pulse Ox 98.4 F 80 20 120/80 97 09/11/18 20:06 09/12/18 08:36 09/11/18 20:06 09/12/18 08:36 09/11/18 20:06 Intake and Output: 09/12/18 09/12/18 06:59 18:59 Intake Total 200 Balance 200 - Medications Medications: Current Medications Acetaminophen (Tylenol 325mg Tab) 650 mg PO Q6 PRN PRN Reason: Fever >100.4 F Amlodipine Besylate (Norvasc) 10 mg PO DAILY [facility] Last Admin: 09/12/18 08:35 Dose: 10 mg Atorvastatin Calcium (Lipitor) 40 mg PO HS [facility] Last Admin: 09/11/18 21:01 Dose: 40 mg Calcitriol (Rocaltrol) 0.25 mcg PO DAILY [facility] Last Admin: 09/12/18 08:37 Dose: 0.25 mcg Colchicine (Colocrys) 0.6 mg PO QOTHERDAY [facility] Last Admin: 09/11/18 08:06 Dose: 0.6 mg Epoetin Tuan (Procrit) 2,000 unit IV MWF [facility] Last Admin: 09/10/18 17:30 Dose: 2,000 unit Levetiracetam (Keppra) 500 mg PO BID [facility] Last Admin: 09/12/18 08:35 Dose: 500 mg Levothyroxine Sodium (Synthroid) 200 mcg PO DAILY@0630 [facility] Last Admin: 09/12/18 06:10 Dose: 200 mcg Metoprolol Tartrate (Lopressor) 12.5 mg PO Q12 [facility] Last Admin: 09/12/18 08:36 Dose: 12.5 mg Pantoprazole Sodium (Protonix Ec Tab) 40 mg PO DAILY [facility] Last Admin: 09/12/18 08:36 Dose: 40 mg Vitamin B Complex/Vit C/Folic Acid (Nephro-Kimani) 1 tab PO DAILY [facility] Last Admin: 09/12/18 08:35 Dose: 1 tab - Labs Labs: 09/04/18 05:55 09/04/18 05:55 - Constitutional Appears: No Acute Distress - Eye Exam Eye Exam: Conjunctival injection - ENT Exam ENT Exam: Mucous Membranes Moist - Neck Exam Neck Exam: absent: Lymphadenopathy - Respiratory Exam Respiratory Exam: NORMAL BREATHING PATTERN. absent: Chest Wall Tenderness - Cardiovascular Exam Cardiovascular Exam: absent: Gallop, JVD - GI/Abdominal Exam GI & Abdominal Exam: Soft, Normal Bowel Sounds - Extremities Exam Extremities Exam: absent: Calf Tenderness - Back Exam Back Exam: absent: CVA tenderness (L), CVA tenderness (R) - Neurological Exam Neurological Exam: Alert - Psychiatric Exam Psychiatric exam: Normal Affect - Skin Skin Exam: absent: Cyanosis Assessment and Plan (1) End stage renal disease Assessment & Plan: End-stage renal disease patient on dialysis Saturday. Intracranial bleeding with CVA Hyperphosphatemia secondary Hyperparathyroidism Anemia Recommendation Patient is stable Tolerating hemodialysis .scheduled for Saturday because her outpatient dialysis TTS and she is going to be discharged Saturday so she will be on her regular schedule EPO on dialysis as ordered for anemia Calcitriol for secondary hyperparathyroidism Status: Acute
[2018-09-12] MEDS: Epoetin Alfa 20000 UNIT/ML Inj IV SCH (10:50)
--- NOTE | 2018-09-12 13:58 | CP.PCM.PN ---
Subjective - Date & Time of Evaluation Date of Evaluation: 09/12/18 Time of Evaluation: 12:00 - Subjective Subjective: no acute complaints at present, generalized weakness Objective - Vital Signs/Intake and Output Vital Signs (last 24 hours): Temp Pulse Resp BP Pulse Ox 98.4 F 80 20 120/80 97 09/11/18 20:06 09/12/18 08:36 09/11/18 20:06 09/12/18 08:36 09/11/18 20:06 Intake and Output: 09/12/18 09/12/18 06:59 18:59 Intake Total 200 Balance 200 - Medications Medications: Current Medications Acetaminophen (Tylenol 325mg Tab) 650 mg PO Q6 PRN PRN Reason: Fever >100.4 F Amlodipine Besylate (Norvasc) 10 mg PO DAILY [facility] Last Admin: 09/12/18 08:35 Dose: 10 mg Atorvastatin Calcium (Lipitor) 40 mg PO HS [facility] Last Admin: 09/11/18 21:01 Dose: 40 mg Calcitriol (Rocaltrol) 0.25 mcg PO DAILY [facility] Last Admin: 09/12/18 08:37 Dose: 0.25 mcg Colchicine (Colocrys) 0.6 mg PO QOTHERDAY [facility] Last Admin: 09/11/18 08:06 Dose: 0.6 mg Epoetin Tuan (Procrit) 2,000 unit IV MWF [facility] Last Admin: 09/12/18 10:50 Dose: Not Given Levetiracetam (Keppra) 500 mg PO BID [facility] Last Admin: 09/12/18 08:35 Dose: 500 mg Levothyroxine Sodium (Synthroid) 200 mcg PO DAILY@0630 [facility] Last Admin: 09/12/18 06:10 Dose: 200 mcg Metoprolol Tartrate (Lopressor) 12.5 mg PO Q12 [facility] Last Admin: 09/12/18 08:36 Dose: 12.5 mg Pantoprazole Sodium (Protonix Ec Tab) 40 mg PO DAILY [facility] Last Admin: 09/12/18 08:36 Dose: 40 mg Vitamin B Complex/Vit C/Folic Acid (Nephro-Kimani) 1 tab PO DAILY [facility] Last Admin: 09/12/18 08:35 Dose: 1 tab - Labs Labs: 09/04/18 05:55 09/04/18 05:55 - Constitutional Appears: Well - Head Exam Head Exam: ATRAUMATIC, NORMAL INSPECTION, NORMOCEPHALIC - Eye Exam Eye Exam: EOMI, Normal appearance, PERRL Pupil Exam: NORMAL ACCOMODATION, PERRL - ENT Exam ENT Exam: Mucous Membranes Moist, Normal Exam - Neck Exam Neck Exam: Full ROM, Normal Inspection - Respiratory Exam Respiratory Exam: Clear to Ausculation Bilateral, NORMAL BREATHING PATTERN - Cardiovascular Exam Cardiovascular Exam: REGULAR RHYTHM - GI/Abdominal Exam GI & Abdominal Exam: Soft, Normal Bowel Sounds - Rectal Exam Rectal Exam: NORMAL INSPECTION - Exam External exam: NORMAL EXTERNAL EXAM - Extremities Exam Extremities Exam: Full ROM, Normal Capillary Refill, Normal Inspection - Back Exam Back Exam: NORMAL INSPECTION - Neurological Exam Neurological Exam: Alert, Awake Neuro motor strength exam: Left Upper Extremity: 3, Right Upper Extremity: 3, Left Lower Extremity: 3, Right Lower Extremity: 3 - Psychiatric Exam Psychiatric exam: Normal Affect, Normal Mood - Skin Skin Exam: Dry, Intact Assessment and Plan (1) End stage renal disease Status: Acute (2) Hemorrhagic cerebrovascular accident (CVA) Assessment & Plan: plan for physical, occupational rec therapy for range of motion, strengthening, transfers and gait training, equipment and discharge planning Status: Acute
--- NOTE | 2018-09-12 15:13 | PCM.OPOC ---
Physiatry Overall Plan of Care - Overall Plan of Care Rehab Impairment: Cognition - Anticipated Interventions Physical Therapy:: Yes (1 hour 5 times a week for 3 weeks) Occupational Therapy:: Yes (1 hour 5 times a week for 3 weeks) Speech Therapy:: Yes (1 hour 5 times a week for 3 weeks) Recreational Therapy:: Yes (1 hour 5 times a week for 3 weeks) - Therapy Goals Bed Mobility: Supervision Ambulation: Independent Functional Positional Changes:: Independent - Functional Outcomes Functional Outcomes: good,functional status was independent prior but now needs assistance in adl, transfers and gait trianing
--- NOTE | 2018-09-12 15:27 | CP.PCM.CON ---
Past Patient History - Past Medical History & Family History Past Medical History?: Yes - Past Social History Smoking Status: Never Smoked Chewing Tobacco Use: No Cigar Use: No Alcohol: None Drugs: Denies - CARDIAC Hx Cardiac Disorders: Yes Hx Hypertension: Yes - PULMONARY Hx Respiratory Disorders: No - NEUROLOGICAL Hx Neurological Disorder: No - HEENT Hx HEENT Problems: Yes Hx Cataracts: Yes - RENAL Hx Renal Failure: Yes - ENDOCRINE/METABOLIC Hx Hypothyroidism: Yes - HEMATOLOGICAL/ONCOLOGICAL Hx Blood Disorders: No - INTEGUMENTARY Hx Dermatological Problems: No - MUSCULOSKELETAL/RHEUMATOLOGICAL Hx Musculoskeletal Disorders: Yes Hx Degenerative Joint Disease: Yes Hx Gout: Yes Other/Comment: HX: RIGHT KNEE REPLACEMENT - GASTROINTESTINAL Hx Gastrointestinal Disorders: No - GENITOURINARY/GYNECOLOGICAL Hx Genitourinary Disorders: No - PSYCHIATRIC Hx Psychophysiologic Disorder: No - SURGICAL HISTORY Hx Surgeries: Yes Hx Arteriovenous Shunt: Yes (LEFT ARM) Hx Cataract Extraction: Yes Hx Coronary Stent: Yes (X1(2017)) Hx Orthopedic Surgery: Yes (RIGHT KNEE REPLACEMENT) - ANESTHESIA Hx Anesthesia: Yes Hx Anesthesia Reactions: No Hx Malignant Hyperthermia: No Meds Allergies/Adverse Reactions: Allergies Allergy/AdvReac Type Severity Reaction Status Date / Time No Known Allergies Allergy Verified 09/03/18 21:45 - Medications Medications: Current Medications Acetaminophen (Tylenol 325mg Tab) 650 mg PO Q6 PRN PRN Reason: Fever >100.4 F Amlodipine Besylate (Norvasc) 10 mg PO DAILY [facility] Last Admin: 09/12/18 08:35 Dose: 10 mg Atorvastatin Calcium (Lipitor) 40 mg PO HS [facility] Last Admin: 09/11/18 21:01 Dose: 40 mg Calcitriol (Rocaltrol) 0.25 mcg PO DAILY [facility] Last Admin: 09/12/18 08:37 Dose: 0.25 mcg Colchicine (Colocrys) 0.6 mg PO QOTHERDAY [facility] Last Admin: 09/11/18 08:06 Dose: 0.6 mg Epoetin Tuan (Procrit) 2,000 unit IV MWF [facility] Last Admin: 09/12/18 10:50 Dose: Not Given Levetiracetam (Keppra) 500 mg PO BID [facility] Last Admin: 09/12/18 08:35 Dose: 500 mg Levothyroxine Sodium (Synthroid) 200 mcg PO DAILY@0630 [facility] Last Admin: 09/12/18 06:10 Dose: 200 mcg Metoprolol Tartrate (Lopressor) 12.5 mg PO Q12 [facility] Last Admin: 09/12/18 08:36 Dose: 12.5 mg Pantoprazole Sodium (Protonix Ec Tab) 40 mg PO DAILY [facility] Last Admin: 09/12/18 08:36 Dose: 40 mg Vitamin B Complex/Vit C/Folic Acid (Nephro-Kimani) 1 tab PO DAILY [facility] Last Admin: 09/12/18 08:35 Dose: 1 tab Results - Vital Signs Recent Vital Signs: Last Vital Signs Temp 98.4 F 09/11/18 20:06 Pulse 80 09/12/18 08:36 Resp 20 09/11/18 20:06 BP 120/80 09/12/18 08:36 Pulse Ox 97 09/11/18 20:06 - Labs Result Diagrams: 09/04/18 05:55 09/04/18 05:55 Assessment & Plan (1) End stage renal disease Status: Acute (2) Hemorrhagic cerebrovascular accident (CVA) Status: Acute
[2018-09-13] MEDS: Levothyroxine 200 MCG TAB PO SCH (06:08)
[2018-09-13] MEDS: Pantoprazole 40 mg EC Tab PO SCH (09:14)
[2018-09-13] MEDS: Multivitamin Vitamin B Complex (Nephro-Vite) Tab PO SCH (09:14)
[2018-09-13] MEDS ORDERED: Epoetin Alfa 4000 UNIT/ML Inj IV ONE (18:14)
[2018-09-14] MEDS: Levothyroxine 200 MCG TAB PO SCH (06:09)
[2018-09-14] MEDS: Multivitamin Vitamin B Complex (Nephro-Vite) Tab PO SCH (08:48)
[2018-09-14] MEDS: Pantoprazole 40 mg EC Tab PO SCH (08:49)
--- NOTE | 2018-09-14 14:22 | CP.PCM.PN ---
Subjective - Date & Time of Evaluation Date of Evaluation: 09/14/18 Time of Evaluation: 14:19 - Subjective Subjective: renal note no events overnight vss nad heent normal op moist s1s2 present no resp distress abd soft nt nd no fnd A&P: End-stage renal disease patient on dialysis Saturday. Intracranial bleeding with CVA Hyperphosphatemia secondary Hyperparathyroidism Anemia Recommendation Patient is stable continue hd tts per schedule lytes ok volume stable EPO on dialysis as ordered for anemia Calcitriol for secondary hyperparathyroidism Objective - Vital Signs/Intake and Output Vital Signs (last 24 hours): Temp Pulse Resp BP Pulse Ox 97.5 F L 104 H 19 116/77 100 09/14/18 08:07 09/14/18 08:56 09/14/18 08:07 09/14/18 08:56 09/14/18 08:07 Intake and Output: 09/14/18 09/14/18 06:59 18:59 Intake Total Output Total Balance - Medications Medications: Current Medications Acetaminophen (Tylenol 325mg Tab) 650 mg PO Q6 PRN PRN Reason: Fever >100.4 F Amlodipine Besylate (Norvasc) 10 mg PO DAILY [facility] Last Admin: 09/14/18 08:56 Dose: Not Given Atorvastatin Calcium (Lipitor) 40 mg PO HS [facility] Last Admin: 09/13/18 21:21 Dose: 40 mg Calcitriol (Rocaltrol) 0.25 mcg PO DAILY [facility] Last Admin: 09/14/18 08:48 Dose: 0.25 mcg Colchicine (Colocrys) 0.6 mg PO QOTHERDAY [facility] Last Admin: 09/13/18 09:14 Dose: 0.6 mg Epoetin Tuan (Procrit) 2,000 unit IV MWF [facility] Last Admin: 09/12/18 10:50 Dose: Not Given Levetiracetam (Keppra) 500 mg PO BID [facility] Last Admin: 09/14/18 08:48 Dose: 500 mg Levothyroxine Sodium (Synthroid) 200 mcg PO DAILY@0630 [facility] Last Admin: 09/14/18 06:09 Dose: 200 mcg Metoprolol Tartrate (Lopressor) 12.5 mg PO Q12 [facility] Last Admin: 09/14/18 08:54 Dose: 12.5 mg Pantoprazole Sodium (Protonix Ec Tab) 40 mg PO DAILY [facility] Last Admin: 09/14/18 08:49 Dose: 40 mg Vitamin B Complex/Vit C/Folic Acid (Nephro-Kimani) 1 tab PO DAILY [facility] Last Admin: 09/14/18 08:48 Dose: 1 tab - Labs Labs: 09/04/18 05:55 09/04/18 05:55
[2018-09-15] MEDS: Levothyroxine 200 MCG TAB PO SCH (05:56)
[2018-09-15 07:25] VITALS: RESP 18; TEMP 98.2; O2SAT 99
[2018-09-15] MEDS: Multivitamin Vitamin B Complex (Nephro-Vite) Tab PO SCH (08:26)
[2018-09-15] MEDS: Pantoprazole 40 mg EC Tab PO SCH (08:30)
[2018-09-15] MEDS: Epoetin Alfa 20000 UNIT/ML Inj IV SCH (08:32)
[2018-09-15 09:40] VITALS: BP 105/61; PULSE 88
--- NOTE | 2018-09-15 10:49 | CP.PCM.PN ---
Subjective - Date & Time of Evaluation Date of Evaluation: 09/15/18 Time of Evaluation: 10:48 - Subjective Subjective: Patient is doing much better awake and conscious. Vital signs stable Objective - Vital Signs/Intake and Output Vital Signs (last 24 hours): Temp Pulse Resp BP Pulse Ox 98.2 F 88 18 105/61 99 09/15/18 07:24 09/15/18 09:39 09/15/18 07:24 09/15/18 09:39 09/15/18 07:24 Intake and Output: 09/15/18 09/15/18 06:59 18:59 Intake Total 300 Output Total 300 Balance 0 - Medications Medications: Current Medications Acetaminophen (Tylenol 325mg Tab) 650 mg PO Q6 PRN PRN Reason: Fever >100.4 F Amlodipine Besylate (Norvasc) 10 mg PO DAILY [facility] Last Admin: 09/15/18 08:27 Dose: Not Given Atorvastatin Calcium (Lipitor) 40 mg PO HS [facility] Last Admin: 09/14/18 21:14 Dose: 40 mg Calcitriol (Rocaltrol) 0.25 mcg PO DAILY [facility] Last Admin: 09/15/18 08:27 Dose: 0.25 mcg Colchicine (Colocrys) 0.6 mg PO QOTHERDAY [facility] Last Admin: 09/15/18 08:26 Dose: 0.6 mg Epoetin Tuan (Procrit) 2,000 unit IV MWF [facility] Last Admin: 09/15/18 08:32 Dose: Not Given Levetiracetam (Keppra) 500 mg PO BID [facility] Last Admin: 09/15/18 08:30 Dose: 500 mg Levothyroxine Sodium (Synthroid) 200 mcg PO DAILY@0630 [facility] Last Admin: 09/15/18 05:56 Dose: 200 mcg Metoprolol Tartrate (Lopressor) 12.5 mg PO Q12 [facility] Last Admin: 09/15/18 09:39 Dose: Not Given Pantoprazole Sodium (Protonix Ec Tab) 40 mg PO DAILY [facility] Last Admin: 09/15/18 08:30 Dose: 40 mg Vitamin B Complex/Vit C/Folic Acid (Nephro-Kimani) 1 tab PO DAILY [facility] Last Admin: 09/15/18 08:26 Dose: 1 tab - Labs Labs: 09/04/18 05:55 09/04/18 05:55 - Constitutional Appears: No Acute Distress - Eye Exam Eye Exam: Conjunctival injection - ENT Exam ENT Exam: Mucous Membranes Moist - Neck Exam Neck Exam: absent: Lymphadenopathy - GI/Abdominal Exam GI & Abdominal Exam: Soft, Normal Bowel Sounds - Extremities Exam Extremities Exam: absent: Calf Tenderness - Back Exam Back Exam: absent: CVA tenderness (L), CVA tenderness (R) - Neurological Exam Neurological Exam: Awake - Skin Skin Exam: absent: Cyanosis Assessment and Plan (1) End stage renal disease Assessment & Plan: End-stage renal disease patient on dialysis TTS out patient Intracranial bleeding with CVA secondary Hyperparathyroidism Anemia Recommendation Patient is stable EPO on dialysis as ordered for anemia Calcitriol for secondary hyperparathyroidism Status: Acute
--- NOTE | 2018-09-15 10:56 | CP.PCM.DIS ---
Provider - Provider Date of Admission: 09/03/18 20:55 Attending physician: Dev Rico Consults: 09/03/18 22:43 Physiatry Consult Routine Comment: Hemorrhagic CVA Consulting Provider: Hernando Strong Consulting Physician: Hernando Strong Reason for Consult: Hemorrhagic CVA 09/03/18 22:47 Nephrology Consult Routine Comment: Consulting Provider: Tc Bermudez Consulting Physician: Tc Bermudez Reason for Consult: ESRD on HD W F M 09/04/18 04:30 Pharmacist Consult As Ordered Comment: Physician Instructions: Reason For Exam: Patient has more than 10 meds. 09/04/18 08:00 Case Management Referral Routine Comment: Physician Instructions: Reason For Exam: Patient is on dialysis.Goes to [facility]. Reason for Referral: Discharge Planning 09/08/18 10:13 Social Work Referral Routine Comment: Hemodialysis Physician Instructions: Reason For Exam: hemodialysis Time Spent in preparation of Discharge (in minutes): 25 Diagnosis - Discharge Diagnosis (1) Hemorrhagic cerebrovascular accident (CVA) Status: Acute Comment: continue Keppra 500mg PO BID. continue PT/OT (2) End stage renal disease Status: Chronic Comment: continue HD TThS (3) Hypothyroidism Status: Chronic Comment: continue Levothyroxine 200mcg PO daily (4) HTN (hypertension) Status: Chronic Comment: BP stable. continue Metoprolol and Amlodipine Hospital Course - Lab Results Lab Results: Most Recent Lab Values WBC 7.0 K/uL (4.8-10.8) 09/04/18 05:55 RBC 3.65 Mil/uL (3.80-5.20) L 09/04/18 05:55 Hgb 9.7 g/dL (12.0-16.0) L 09/04/18 05:55 Hct 30.4 % (34.0-47.0) L 09/04/18 05:55 MCV 83.4 fl (81.0-99.0) 09/04/18 05:55 MCH 26.5 pg (27.0-31.0) L 09/04/18 05:55 MCHC 31.8 g/dL (33.0-37.0) L 09/04/18 05:55 RDW 17.8 % (11.5-14.5) H 09/04/18 05:55 Plt Count 311 K/uL (130-400) 09/04/18 05:55 MPV 8.1 fl (7.2-11.7) 09/04/18 05:55 Neut % (Auto) 78.6 % (50.0-75.0) H 09/04/18 05:55 Lymph % (Auto) 12.9 % (20.0-40.0) L 09/04/18 05:55 [place] % (Auto) 8.2 % (0.0-10.0) 09/04/18 05:55 Eos % (Auto) 0.1 % (0.0-4.0) 09/04/18 05:55 Baso % (Auto) 0.2 % (0.0-2.0) 09/04/18 05:55 Neut # (Auto) 5.5 K/uL (1.8-7.0) 09/04/18 05:55 Lymph # (Auto) 0.9 K/uL (1.0-4.3) L 09/04/18 05:55 [place] # (Auto) 0.6 K/uL (0.0-0.8) 09/04/18 05:55 Eos # (Auto) 0.0 K/uL (0.0-0.7) 09/04/18 05:55 Baso # (Auto) 0.0 K/uL (0.0-0.2) 09/04/18 05:55 Sodium 137 mmol/l (132-148) 09/04/18 05:55 Potassium 3.8 MMOL/L (3.6-5.0) 09/04/18 05:55 Chloride 93 mmol/L (98-107) L 09/04/18 05:55 Carbon Dioxide 29 mmol/L (22-30) 09/04/18 05:55 Anion Gap 19 (10-20) 09/04/18 05:55 BUN 47 mg/dl (7-17) H 09/04/18 05:55 Creatinine 4.8 mg/dl (0.7-1.2) H 09/04/18 05:55 Est GFR ( Amer) 11 09/04/18 05:55 Est GFR (Non-Af Amer) 9 09/04/18 05:55 POC Glucose (mg/dL) 125 mg/dL (65-110) H 09/09/18 15:43 Random Glucose 59 mg/dL (65-105) L 09/04/18 05:55 Calcium 9.3 mg/dL (8.4-10.2) 09/04/18 05:55 Phosphorus 2.3 mg/dl (2.5-4.5) L 09/04/18 11:30 Magnesium 1.8 MG/DL (1.6-2.3) 09/04/18 05:55 PTH Intact Whole Molec 187 pg/mL (14-64) H 09/04/18 11:30 Hep Bs Antigen Negative (NEGATIVE) 09/05/18 18:36 Hep Bs Antibody Negative (NEGATIVE) 09/05/18 18:36 Hep B Core IgM Ab Negative (NEGATIVE) 09/05/18 18:36 - Hospital Course Hospital Course: 73 yo emale with history of ESRD on HD T Th S, HTN, CAD and Gout was transferred from the [facility] to Acute Rehab for continued treatment and rehabilitation. She was admitted at [facility] on 08/26/18 because of confusion and right sided weakness and was diagnosed with Acute CVA with Cerebral Hemorrhage. Patient did well and now is ready to go home in stable condition. Discharge Exam - Head Exam Head Exam: ATRAUMATIC, NORMAL INSPECTION, NORMOCEPHALIC - Eye Exam Eye Exam: absent: Scleral icterus - ENT Exam ENT Exam: Mucous Membranes Moist - Respiratory Exam Respiratory Exam: absent: Rales, Rhonchi, Wheezes, Respiratory Distress - Cardiovascular Exam Cardiovascular Exam: REGULAR RHYTHM, +S1, +S2 - GI/Abdominal Exam GI & Abdominal Exam: Soft. absent: Tenderness - Rectal Exam Rectal Exam: Deferred - Neurological Exam Neurological exam: Alert, Oriented x3 - Psychiatric Exam Psychiatric exam: Normal Affect - Skin Skin Exam: Dry, Intact Discharge Plan - Discharge Medications Prescriptions: amLODIPine [Norvasc] 10 mg PO DAILY #30 tab Atorvastatin [Lipitor] 40 mg PO HS #30 tab B Complex W-C No.20/Folic Acid [Nephrocaps Softgel] 1 mg PO DAILY #30 capsule Calcium Acetate [Phoslo] 667 mg PO TID #90 capsule Colchicine [Colcrys] 0.6 mg PO QOTHERDAY #15 tablet Epoetin Tuan [Epogen] 2,000 unit IVP MWF #12 vial Levetiracetam 500 mg PO BID #60 tablet levETIRAcetam [Keppra] 500 mg PO BID #60 tab Levothyroxine [Synthroid] 200 mcg PO DAILY #30 tab Metoprolol Tartrate [Lopressor] 12.5 mg PO Q12 #60 tab Pantoprazole [Protonix EC Tab] 40 mg PO DAILY #30 ect - Follow Up Plan Condition: GOOD Disposition: HOME/ ROUTINE Instructions: Polysaccharide-Iron Complex, Vitamin B12, and Folic Acid, Acetaminophen, Amlodipine, Amoxicillin, Atorvastatin, Calcium Acetate, Colchicine, Levetiracetam, Levothyroxine, Metoprolol, Pantoprazole Additional Instructions: Follow up appointments as follows: 1. (PMD) 09/29/2018 at 0900 [address] [facility] [address] [place] [address] tel# [phone] 2. (nephro) September [address] [facility] [address] [place] [address] tel# [phone] 3. (neuro) call for appt. in 2-3 weeks [phone] [address] [place] [address] [phone] 4. (vascular) September 26, [address] at [address] [facility] [id number] 5. ( neuro-opthalmologist) December 05, 2018 at 400pm [address] [id number] tel# [phone] Referral made to [facility] for home visiting nurse, PT/OT [phone]
--- NOTE | 2018-09-16 12:46 | CP.PCM.PN ---
Subjective - Date & Time of Evaluation Date of Evaluation: 09/13/18 Time of Evaluation: 12:30 - Subjective Subjective: no acute complaints at present Objective - Vital Signs/Intake and Output Vital Signs (last 24 hours): Temp Pulse Resp BP Pulse Ox 98.2 F 88 18 105/61 99 09/15/18 07:24 09/15/18 09:39 09/15/18 07:24 09/15/18 09:39 09/15/18 07:24 - Labs Labs: 09/04/18 05:55 09/04/18 05:55 - Constitutional Appears: Well - Head Exam Head Exam: ATRAUMATIC, NORMAL INSPECTION, NORMOCEPHALIC - Eye Exam Eye Exam: EOMI, Normal appearance, PERRL Pupil Exam: NORMAL ACCOMODATION - ENT Exam ENT Exam: Mucous Membranes Moist, Normal Exam - Neck Exam Neck Exam: Normal Inspection - Respiratory Exam Respiratory Exam: Clear to Ausculation Bilateral, NORMAL BREATHING PATTERN - Cardiovascular Exam Cardiovascular Exam: REGULAR RHYTHM - GI/Abdominal Exam GI & Abdominal Exam: Soft, Normal Bowel Sounds - Rectal Exam Rectal Exam: NORMAL INSPECTION - Exam External exam: NORMAL EXTERNAL EXAM - Extremities Exam Extremities Exam: Full ROM, Normal Capillary Refill, Normal Inspection - Back Exam Back Exam: NORMAL INSPECTION - Neurological Exam Neurological Exam: Alert, Awake Neuro motor strength exam: Left Upper Extremity: 3, Right Upper Extremity: 3, Left Lower Extremity: 3, Right Lower Extremity: 3 - Psychiatric Exam Psychiatric exam: Normal Affect, Normal Mood - Skin Skin Exam: Dry, Intact Assessment and Plan (1) End stage renal disease Status: Chronic (2) Hemorrhagic cerebrovascular accident (CVA) Assessment & Plan: plan for Dc on 11 to continue with physical, occuaptional rec therapy Status: Acute
== END 2018-09-15 19:00 | disposition home or self-care (01) | DRG 56 ==
PROVIDERS: ADMIT Internal Medicine; ATTEND Internal Medicine
PROC: F07M6FZ Therapeutic Exercise Treatment of Musculoskeletal System - Whole Body using Assistive, Adaptive, Supportive or Protective Equipment (ICD-10-PCS; 2018-09-04)
PROC: F07Z9FZ Gait Training/Functional Ambulation Treatment using Assistive, Adaptive, Supportive or Protective Equipment (ICD-10-PCS; 2018-09-04)
PROC: F08Z4FZ Home Management Treatment using Assistive, Adaptive, Supportive or Protective Equipment (ICD-10-PCS; 2018-09-04)
PROC: 5A1D70Z Performance of Urinary Filtration, Intermittent, Less than 6 Hours Per Day (ICD-10-PCS; principal; 2018-09-05)
PROC: 5A1D70Z Performance of Urinary Filtration, Intermittent, Less than 6 Hours Per Day (ICD-10-PCS; 2018-09-10)
PROC: 5A1D70Z Performance of Urinary Filtration, Intermittent, Less than 6 Hours Per Day (ICD-10-PCS; 2018-09-13)
DX: I69.154 Hemiplegia and hemiparesis following nontraumatic intracerebral hemorrhage affecting left non-dominant side (principal); N18.6 End stage renal disease; I12.0 Hypertensive chronic kidney disease with stage 5 chronic kidney disease or end stage renal disease; N25.81 Secondary hyperparathyroidism of renal origin; N39.0 Urinary tract infection, site not specified; D63.8 Anemia in other chronic diseases classified elsewhere; E03.9 Hypothyroidism, unspecified; I25.10 Atherosclerotic heart disease of native coronary artery without angina pectoris; I25.2 Old myocardial infarction; Z95.5 Presence of coronary angioplasty implant and graft; Z96.651 Presence of right artificial knee joint; Z99.2 Dependence on renal dialysis; H26.9 Unspecified cataract; M10.9 Gout, unspecified; M19.90 Unspecified osteoarthritis, unspecified site